=== PATIENT | male | born 1960 | race Caucasian/White ===

== ENCOUNTER → 2017-08-18 06:48 | Outpatient (CLI) | payer MEDICAID, SELFPAY ==
--- NOTE | 2017-08-18 10:36 | STRESSREP ---
Stress Test Report Exercise myocardial perfusion stress test. 56-year-old man with a history of chest pain. Stress protocol: Resting EKG demonstrates normal sinus rhythm with rate of 72 bpm normal intervals and noted resting blood pressure is 148/86 mmHg. The patient exercised according to regular Cash protocol for total duration of 4 minutes completing 1 minute into stage II of the Cash protocol the maximum heart rate attained was 1 34 bpm which was 80% of maximum predicted heart rate the maximum workload was 5.8 metabolic equivalents. Patient maintained sinus rhythm throughout the recording at rest there were no ST or T-wave changes noted suggest ischemia peak exercise no ST or T-wave changes were noted suggest ischemia the resting blood pressure 148/86 with a peak blood pressure 168/84. No clinical angina was noted rate pressure product was 21,600. Myocardial perfusion protocol. 11.9 mCi of technetium 99m sestamibi was injected at rest. The patient exercised according to regular Cash protocol for 4 minutes attaining 80% of maximum predicted heart rate and a workload of 5.8 metabolic equivalents. At peak exercise 34.1 mCi of technetium 99m sestamibi was injected stress images were obtained stress and rest images were reconstructed and compared in the short axis vertical long and horizontal long axis. Gated images were also obtained. Perfusion SPECT analysis: Review of the stress images demonstrate normal uptake of tracer noted in all areas of the myocardium. The resting images similarly demonstrate normal uptake of tracer noted in all areas of myocardium. No areas of reversibility are noted no ischemia is present and no infarct is present. Gated SPECT analysis: The gated ejection fraction is noted to be 61%. Conclusion: Normal exercise myocardial perfusion stress test at a moderate workload. No clinical angina noted. Preserved ejection fraction.
== END ==
LOC: CVS 06:48 → NM 06:50
PROVIDERS: Family Provider Internal Medicine; PCP Internal Medicine; Visit Provider Nurse Practitioner
DX: R07.9 Chest pain, unspecified (principal)
CPT/HCPCS: 78452; 93017; A9500; A4216

== ENCOUNTER 2018-12-07 10:54 | Day surgery (SDC) | payer MEDICAID, SELFPAY ==
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
[2018-12-07] VITALS (7 sets, daily range): BP systolic 140–150; BP diastolic 98–104; PULSE 77–103; RESP 16–18; TEMP 36.5–37.5; O2SAT 96–100; BMI 25.9
--- NOTE | 2018-12-07 | IMM_PTH ---
PATIENT: LUIS AN LOC: [facility] U#:[id number] AGE/SX: 57/M ROOM: RE12/07/[address]: Dr. Lionel Rodriguez MD : 1960 BED: DIS: 12/07/2018 SPEC #: [id number] RECD: 12/08/18 15:27 STATUS: ALDO RELeni #: [id number] CHRISTIANA: 12/07/18 00:[address]: Lionel Rodriguez DEPT: IMMUNOHISTOCHEMISTRY RECD BY: Mari Morin ENTERED: 12/08/18 15:28 SP TYPE: IMMUNO OTHR DR: Dr. Moe Schuler MD Tissues: Gastric mucous membrane Procedures: H Pylori (initial) PHYSICIAN & [place] [id number] SPECIMEN INFORMATION: Tissue Source: A. Antrum biopsy Clinical Info: Hemoccult positive stools Specimen Number: [id number] CPT code: 30733 METHODOLOGY: Deparaffinized sections of prefer/formalin-fixed tissue or PAP/DQ stained slides are incubated with monoclonal/polyclonal antibodies/oligonucleotide probes. Localization is made via biotin free immunoperoxidase method. Appropriate controls are performed and reacted as expected. Results on target cell population are indicated in the following table: RESULTS: ANTIBODY / CLONE RESULT H Pylori (polyclonal) negative These tests were developed and their performance characteristics determined by [facility]. They may not have been cleared or approved by the U.S. Food and Drug Administration. The FDA has determined that such clearance or approval is not necessary. INTERPRETATION: Antrum, biopsy: Negative for Helicobacter pylori organisms. SARI:bayron 12/09/18
[2018-12-07] MEDS: Lactated Ringers 1,000 ML 75 ML IV (11:26)
--- NOTE | 2018-12-07 12:00 | COLBX_PTH ---
PATIENT: LUIS AN LOC: EN U#:[id number] AGE/SX: 57/M ROOM: RE12/07/[address]: Dr. Lionel Rodriguez MD : 1960 BED: DIS: 12/07/2018 SPEC #: [id number] RECD: 12/07/18 14:53 STATUS: ALDO BARBARA #: [id number] CHRISTIANA: 12/07/18 12:[address]: Lionel Rodriguez DEPT: SURGICAL PATHOLOGY RECD BY: Chester Cheek ENTERED: 12/08/18 14:06 SP TYPE: COLON BX OTHR DR: Dr. Moe Schuler MD Tissues: A - Gastric mucous membrane B - Transverse colon C - Descending colon D - Rectum, NOS Procedures: Surgery Specimen Level IV HEADER OPERATION: Colonoscopy, EGD ([facility]) PRE-OP DIAGNOSIS: Hemoccult positive stools TISSUE SUBMITTED: A. Antrum biopsy, B. Proximal transverse colon polyps, C. Descending colon biopsy, D. Rectum polyp MICROSCOPIC DIAGNOSIS A. Antrum, biopsy: Mild gastritis. B. Proximal transverse colon polyp, biopsy: Tubular adenoma. C. Descending colon polyp, biopsy: Tubular adenoma. Fragments of fecal material. D. Rectum polyp, biopsy. Tubular adenoma. SJ:sp 12/09/18 COMMENT A. The results of immunohistochemistry for Helicobacter pylori will be reported separately ([id number]). MICROSCOPIC DESCRIPTION Slides are reviewed. The specimen shows fragments of gastric mucosa with chronic inflammatory cell infiltrates in the lamina propria consisting of lymphocytes and plasma cells, consistent with mild chronic gastritis. GROSS DESCRIPTION A. Received is one container labeled with the patient name and designated antral biopsy. The specimen consists of one irregular fragment of light rooney soft tissue that measures 0.3 x 0.3 x 0.1 cm. The specimen is totally submitted in one cassette. B. Received in fixative is one container labeled with the patient's name and designated proximal transverse colon polyp. The specimen consists of a piece of rooney-pink polyp measuring 0.7 x 0.7 x 0.3 cm. The specimen is totally submitted in one cassette. C. Received is one container labeled with the patient name and designated descending colon polyp. The specimen consists of multiple fragments of rooney soft tissue mixed with fecal material that in aggregate measure 2.5 x 0.5 x 0.1 cm. The specimen is totally submitted in one cassette. D. Received in fixative is one container labeled with the patient's name and designated rectum polyp. The specimen consists of a pink-red polyp measuring in 0.9 x 0.9 x 0.7 cm. The apparent base is inked. The polyp is bisected and submitted entirely in one cassette. /SJ:sp 12/08/18 TC: 1 CPT: 48814 x4
--- NOTE | 2018-12-07 13:05 | OP.ENDO_ITS ---
12/07/2018 Moe Schuler [address] [place] [address] Re : Upper GI endoscopy procedure for [place] [facility] Nurse Practitioner Dear Dr. Schuler This procedure was performed on Friday, December 07, 2018. My impressions and recommendations are as follows: Impressions : - Normal examined jejunum. - Normal examined duodenum. - Gastritis. Biopsied. - Normal esophagus. Recommendations : - Use Prilosec (omeprazole) 40 mg PO daily. - Continue present medications. My findings are described in the full procedure note, which is enclosed. If I can be of further assistance, please feel free to contact me at Doctor phone number(s): , Work: . Sincerely, Lionel Rodriguez MD 12/07/2018 1:05:00 PM This report has been signed electronically.
--- NOTE | 2018-12-07 13:10 | OP.ENDO_ITS ---
12/07/2018 Moe Schuler [address] [place] [address] Re : Colonoscopy procedure for [place] [employer] Dear Dr. Schuler This procedure was performed on Friday, December 07, 2018. My impressions and recommendations are as follows: Impressions : - Diverticulosis in the entire examined colon. - Five 5 to 13 mm polyps in the rectum, in the descending colon, in the transverse colon and at the hepatic flexure, removed with a cold snare. Resected and retrieved. Clip (MR conditional) was placed. - The examination was otherwise normal. - The distal rectum and anal verge are normal on retroflexion view. Recommendations : - Discharge patient to home. - Resume previous diet. 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 - Repeat colonoscopy in 3 years for surveillance of multiple polyps. - Continue present medications. My findings are described in the full procedure note, which is enclosed. If I can be of further assistance, please feel free to contact me at Doctor phone number(s): , Work: . Sincerely, Lionel Rodriguez MD 12/07/2018 1:10:07 PM This report has been signed electronically.
== END 2018-12-07 14:16 | disposition home or self-care (01) ==
LOC: EN 10:56 → AC 11:03
PROVIDERS: Family Provider Internal Medicine; PCP Internal Medicine; Referring Provider Internal Medicine; Visit Provider Surgery
PROC: 0DJD8ZZ Inspection of Lower Intestinal Tract, Via Natural or Artificial Opening Endoscopic (ICD-10-PCS; CPT 45378; principal; 2018-12-07 11:55)
DX: D12.3 Benign neoplasm of transverse colon (principal); D12.4 Benign neoplasm of descending colon; D12.8 Benign neoplasm of rectum; K57.30 Diverticulosis of large intestine without perforation or abscess without bleeding; K29.70 Gastritis, unspecified, without bleeding; I10 Essential (primary) hypertension; J43.9 Emphysema, unspecified; K43.2 Incisional hernia without obstruction or gangrene; R19.5 Other fecal abnormalities; R19.00 Intra-abdominal and pelvic swelling, mass and lump, unspecified site; R13.10 Dysphagia, unspecified; F12.90 Cannabis use, unspecified, uncomplicated; F17.210 Nicotine dependence, cigarettes, uncomplicated; F10.10 Alcohol abuse, uncomplicated; Y90.9 Presence of alcohol in blood, level not specified; Z79.899 Other long term (current) drug therapy
CPT/HCPCS: 43239; 45385; 88305; 88342; J7120; J2405

== ENCOUNTER 2022-03-15 12:17 | Inpatient (IN) | payer MEDICAID, SELFPAY ==
[2022-03-15] VITALS (25 sets, daily range): BP systolic 111–156; BP diastolic 61–90; PULSE 100–126; RESP 15–24; TEMP 36.6–38.1; O2SAT 95–100; BMI 28.0; BMI 26.7
--- NOTE | 2022-03-15 13:13 | EKG12_ITS ---
Test Reason : GI Blood Pressure : / mmHG Vent. Rate : 111 BPM Atrial Rate : 111 BPM P-R Int : 184 ms QRS Dur : 086 ms QT Int : 346 ms P-R-T Axes : 070 061 055 degrees QTc Int : 470 ms Sinus tachycardia with occasional Premature ventricular complexes Low voltage QRS Borderline ECG Confirmed by MYESHA RODRIGUEZ, PATRICE ([id number]), managing editor MIROSLAVA TIWARI ([id number]) on 03/19/2022 12:11:30 PM Referred By: FABRIZIO Confirmed By:PATRICE BRUNNER MD
--- NOTE | 2022-03-15 13:28 | CT_ITS ---
STUDY: CT ABDOMEN AND PELVIS WITH CONTRAST REASON FOR EXAM: Male, 61 years old. 3 week history of blood in the stools. Hematemesis for 2 days. History of prior partial colectomy. Lung cancer. RADIATION DOSAGE (If Supplied By Facility): CTDIvol = ( 13.64 ) mGy, DLP = ( 1199.50 ) mGycm TECHNIQUE: Transaxial images were obtained from the dome of the diaphragm to the symphysis pubis without oral contrast. IV 100mL Isovue-370 was administered. Sagittal and coronal images were reconstructed. Individualized dose optimization techniques were used for this CT. COMPARISON: None. FINDINGS: Tiny bilateral pleural effusions with bibasilar atelectasis. Coronary artery calcification. There is a diffuse contour abnormality of the liver consistent with cirrhotic changes. Hepatomegaly. Small amount of perihepatic fluid collection. Scattered tiny cysts in the liver. Small gallstones. Small remnant spleen. Possible varices in the splenic hilum. Small cystic spaces are seen in the head of the pancreas. Questionable 2.5 cm hypodense mass in the head of the pancreas. Normal bilateral adrenal glands. Normal right kidney. Normal left kidney. Thickening of the gastric wall although the stomach is not adequately distended at this time. Normal small intestine. There are multiple colonic diverticula consistent with diverticulosis. Normal abdominal aorta. Normal inferior vena cava. Normal retroperitoneum. Haziness in the mesenteric fat at the level of the root of the mesentery. Minimal amount of the lateral free fluid in the paracolic gutters. Mildly thickened bladder wall. There are prostatic calcifications. There is evidence of a midline ventral hernia containing nondilated small bowel loops. Left Air-containing fat. There are diffuse degenerative changes of the visualized lumbar spine. CT/Abdomen/Pelvis W IV Cont ONLY IMPRESSION: Minimal bilateral pleural effusions with bibasilar atelectasis. Hepatomegaly and findings are suggestive of cirrhosis of the liver. Mild degree of ascites. Small splenic remnants. Findings suggestive of varices. Midline anterior abdominal wall hernia containing nondilated small bowel loops. The neck of the hernia measures 3.9 cm. Small gallstones. Questionable 2.5 cm hypodense mass in the head of the pancreas. Electronically Signed: Girish Lynch MD at 15:03 EST ,
--- NOTE | 2022-03-15 13:29 | ED.VIS.GI ---
HPI HPI - GI History of Present Illness Chief Complaint: GI Bleed Narrative Narrative: 61-year-old male presenting with hematemesis and bloody stools. He states he drinks about a pint of schnapps daily. He used to drink more than this. He states he was not feeling well and was vomiting so he did not drink for the last 4 days. He admits to drinking today however. Patient states he has not vomited blood or had bloody stools for the last couple of days. He does state that he has black stool currently. He states he last had endoscopy performed by Dr. Rodriguez about 2 months ago and this was normal. He has no history of GI bleed. He is not on any blood thinners. He does note that he has darker skin than usual and his eyes are yellow. He states currently he is not having any abdominal pain. He does admit to some irritation of the scrotum from trying to wipe himself and stating he could not reach his rectum very well causing him to excoriate his scrotum. Other than this he denies any trauma. PFSH PFSH Medical History Alcoholic cirrhosis COPD (chronic obstructive pulmonary disease) ETOH abuse Hernia HTN (hypertension) Tobacco use Home Medications ferrous sulfate 325 mg (65 mg iron) tablet (FeroSul) 325 mg PO DAILY SUPPLEMENT 03/15/22 [History Last Taken 03/15/22] furosemide 40 mg tablet 40 mg PO DAILY FLUID 03/15/22 [History Last Taken Unknown] spironolactone 50 mg tablet 50 mg PO BID HTN 03/15/22 [History Last Taken 03/15/22] Allergy/AdvReac Type Severity Reaction Status Date / Time bee venom protein (honey bee) Allergy Hives Verified 03/15/22 12:19 codeine Allergy Hives Verified 03/15/22 12:19 Family History (Updated 03/15/22 @ 15:[address] Nishi Nassar MD) Father Diabetes Hypertension Mother Hypertension Surgical History (Updated 03/15/22 @ 15:[address] Nishi Nassar MD) H/O elbow replacement H/O exploratory laparotomy H/O hernia repair Social History (Updated 03/15/22 @ 15:[address] Nishi Nassar MD) household members: none Smoking Status: Current every day smoker tobacco type: cigarettes Smoking packs per day: 2 Smoking cigarettes per day: 40.0 Years smoked: 49 Smoking pack-years: 98.00 alcohol intake: current alcohol intake frequency: 3 or more drinks per day Alcohol type: beer and hard liquor details: Prior Hx ~ 12 beers daily prior, now reporting 1 pint schnapps daily. substance use type: does not use ROS ROS ED Constitutional Constitutional ED: Denies chills or fever(s) ENT ENT ED: Denies rhinorrhea or sore throat Cardiovascular Cardiovascular: Denies chest pain or palpitations Respiratory/Chest Respiratory/Chest: Denies cough or dyspnea Gastrointestinal Gastrointestinal: Reports melena, nausea, vomiting and other Details: Hematemesis, medic easier Genitourinary Genitourinary ED: Denies dysuria or hematuria Musculoskeletal Musculoskeletal: Denies arthralgias Integumentary Reports other Details: Excoriations to scrotum Neurologic Neurologic: Denies headache(s) or paresthesias Psychiatric Psychiatric: Denies anxiety or depression Endocrine Endocrinology: Denies polydipsia or polyphagia EXAM Physical Exam Narrative Exam Narrative: 5 Const Vital Signs: 03/15/22 12:20 03/15/22 13:44 03/15/22 14:16 Temperature 99.1 F Temperature Source Oral Pulse Rate 126 H 114 H 112 H Respiratory Rate 21 H 18 18 Blood Pressure 135/77 H 139/75 H 136/70 H Blood Pressure Mean 96 96 92 Blood Pressure Source Blood Pressure Position Blood Pressure Location Pulse Ox 99 100 100 Oxygen Delivery Method Room Air Room Air Room Air 03/15/22 15:11 03/15/22 15:43 03/15/22 15:46 Temperature 98.3 F 98.3 F Temperature Source Oral Oral Pulse Rate 111 H 109 H 105 H Respiratory Rate 15 19 H 18 Blood Pressure 126/69 H 124/62 H 123/67 H Blood Pressure Mean 88 82 85 Blood Pressure Source Monitor Monitor Blood Pressure Position Supine Supine Blood Pressure Location Right Arm Right Arm Pulse Ox 98 98 96 Oxygen Delivery Method Room Air Room Air Room Air 03/15/22 16:01 03/15/22 16:13 03/15/22 17:01 Temperature 99.6 F H 100.4 F H Temperature Source Oral Oral Pulse Rate 108 H 105 H 104 H Respiratory Rate 17 18 18 Blood Pressure 125/61 H 125/61 H 146/83 H Blood Pressure Mean 82 82 104 Blood Pressure Source Monitor Monitor Blood Pressure Position Supine Supine Blood Pressure Location Right Arm Right Arm Pulse Ox 97 98 98 Oxygen Delivery Method Room Air Room Air Room Air 03/15/22 17:12 Temperature Temperature Source Pulse Rate 110 H Respiratory Rate 19 H Blood Pressure 146/83 H Blood Pressure Mean 104 Blood Pressure Source Blood Pressure Position Blood Pressure Location Pulse Ox 98 Oxygen Delivery Method Room Air General Appearance ED: NAD; Negative for pallor HEENT Reports dry mucous membranes Mouth ED: Yes dry mucous membranes Mouth: dry mucous membranes Eyes General Eye ED: Yes scleral icterus Neck no lymphadenopathy Resp normal respiratory effort Cardio regular rhythm Rate: tachycardic GI non-tender Palpation: soft Neuro CN's II-XII intact bilaterally Sensorium / Orientation: alert Motor Exam: strength 5/5 throughout Psych mental status grossly normal and thought process normal Skin Skin Narrative: Scrotum mildly erythematous. No crepitance. No evidence of torsion. General Skin Exam: Negative for jaundice or pallor MDM MDM MDM Narrative Medical decision making narrative: 11-year-old male presenting with jaundice, scleral icterus, reported hematemesis and hematochezia which stopped about 2 days ago. He states he chronically drinks about a pint of schnapps a day. He states he had a recent endoscopy performed by Dr. Rodriguez within the last couple of months which he said was normal. Patient is tachycardic on arrival with a heart rate of 126 although he is normotensive with a blood pressure of 135/77. He states at this time he does not have any abdominal pain but had been having a little bit while he was vomiting. He reports that over the last few days he had not been drinking alcohol because he did not feel well and has not had any withdrawal symptoms. Blood work was obtained and he has a leukocytosis of 15.6. His hemoglobin today is 4.8. His only comparison lab work is from April 25, 2021 when it was 11.0. His platelets are 155 today. Creatinine appears normal today. Electrolytes are unremarkable. His total bilirubin is 13.90. Direct bilirubin is 8.15. Lipase slightly elevated at 43. AST mildly elevated at 55. ALT and alkaline phosphatase are normal. INR is 3.2 and the patient reports he is not on anticoagulation. EKG was obtained because of the patient's tachycardia and on my interpretation is a sinus tachycardia with a ventricular rate of 111 bpm with occasional PVCs. High-sensitivity troponin is 14. Typed, screened, crossmatched for 2 units. I initially spoke with Dr. Bach who is on-call for general surgery and she did not feel comfortable keeping the patient at [facility]. I spoke with Dr. Burnette who recommended placing the patient in the ICU due to the severe anemia. He recommended starting an acetylcholine and treating like it was a Tylenol overdose, he recommended 400 mg of pentoxifylline 3 times daily, Protonix drip, octreotide drip with a rate of 12 mg/h, 1 g of Rocephin every 24, one-time dose of vitamin K 5 mg IV. This was given here in the ED. I spoke with the hospitalist on-call and the patient was admitted in stable condition. Impression: 1. Leukocytosis 2. Acute blood loss anemia 3. Hematemesis 4. Hematochezia 5. EtOH abuse 6. Cirrhosis 7. 2.5 cm mass in the pancreatic head 8. Tachycardia Lab Data Attestation: I reviewed the patient's lab results. Labs: Laboratory Results - last 24 hr 03/15/22 03/15/22 03/15/22 12:30 12:30 12:30 WBC 15.6 H RBC 1.57 L Hgb 4.8 L* Hct 17.5 L MCV 111.5 H MCH 30.6 MCHC 27.4 L RDW Std Deviation 87.5 H RDW Coeff of [place] 22.6 H Plt Count 155 MPV 11.4 Immature Gran % (Auto) 2.500 H Neut % (Auto) 82.2 H Lymph % (Auto) 3.2 L [place] % (Auto) 12.0 H Eos % (Auto) 0.0 Baso % (Auto) 0.1 Absolute Neuts (auto) 12.8 H Absolute Lymphs (auto) 0.50 L Nucleated RBC % 2.0 [address] Path Review May foll Dohle Bodies RARE Polychromasia 1+ Hypochromasia 3+ Anisocytosis 3+ PT INR Sodium 133 L Potassium 3.5 Chloride 100 Carbon Dioxide 18.0 L Anion Gap 15 BUN 22 H Creatinine 1.13 Estim Creat Clear Calc 68.10 Est GFR (MDRD) Af Amer 85 Est GFR (MDRD) Non-Af 71 BUN/Creatinine Ratio 19.5 Glucose 128 H Calcium 8.2 L Total Bilirubin 13.90 H Direct Bilirubin AST 55 H ALT 23 Alkaline Phosphatase 100 Troponin I High Sens 14 Total Protein 6.2 L Albumin 1.9 L Globulin 4.3 H Albumin/Globulin Ratio 0.4 L Lipase 403 H Ethyl Alcohol Blood Type O POSITIVE Antibody Screen NEGATIVE Crossmatch 03/15/22 03/15/22 03/15/22 12:30 12:30 12:30 WBC RBC Hgb Hct MCV MCH MCHC RDW Std Deviation RDW Coeff of [place] Plt Count MPV Immature Gran % (Auto) Neut % (Auto) Lymph % (Auto) [place] % (Auto) Eos % (Auto) Baso % (Auto) Absolute Neuts (auto) Absolute Lymphs (auto) Nucleated RBC % Diff Path Review Dohle Bodies Polychromasia Hypochromasia Anisocytosis PT 32.1 H INR 3.2 Sodium Potassium Chloride Carbon Dioxide Anion Gap BUN Creatinine Estim Creat Clear Calc Est GFR (MDRD) Af Amer Est GFR (MDRD) Non-Af BUN/Creatinine Ratio Glucose Calcium Total Bilirubin Direct Bilirubin 8.15 H AST ALT Alkaline Phosphatase Troponin I High Sens Total Protein Albumin Globulin Albumin/Globulin Ratio Lipase Ethyl Alcohol Blood Type Antibody Screen Crossmatch See Detail 03/15/22 13:54 WBC RBC Hgb Hct MCV MCH MCHC RDW Std Deviation RDW Coeff of [place] Plt Count MPV Immature Gran % (Auto) Neut % (Auto) Lymph % (Auto) [place] % (Auto) Eos % (Auto) Baso % (Auto) Absolute Neuts (auto) Absolute Lymphs (auto) Nucleated RBC % Diff Path Review Dohle Bodies Polychromasia Hypochromasia Anisocytosis PT INR Sodium Potassium Chloride Carbon Dioxide Anion Gap BUN Creatinine Estim Creat Clear Calc Est GFR (MDRD) Af Amer Est GFR (MDRD) Non-Af BUN/Creatinine Ratio Glucose Calcium Total Bilirubin Direct Bilirubin AST ALT Alkaline Phosphatase Troponin I High Sens Total Protein Albumin Globulin Albumin/Globulin Ratio Lipase Ethyl Alcohol 34.0 Blood Type Antibody Screen Crossmatch Radiography Diagnostic Testing: Clinical Impression(s) from Imaging Studies Abdomen/Pelvis CT 03/15/22 13:28 IMPRESSION: Minimal bilateral pleural effusions with bibasilar atelectasis. Hepatomegaly and findings are suggestive of cirrhosis of the liver. Mild degree of ascites. Small splenic remnants. Findings suggestive of varices. Midline anterior abdominal wall hernia containing nondilated small bowel loops. The neck of the hernia measures 3.9 cm. Small gallstones. Questionable 2.5 cm hypodense mass in the head of the pancreas. Electronically Signed: Girish Lynch MD at 15:03 EST , Critical Care Time Critical Care Time: Yes Critical care time (excluding procedures): 30-74 minutes (31), Discussing w/Patient &/or Family/Cat Hooker, Discussing w/Consultants and Arranging Admission or Transfer Discharge Plan Triage Chief Complaint: GI Bleed ED Provider: Bobo Grigsby Dx/Rx/DC Orders Prescriptions: No Action furosemide 40 mg tablet 40 mg PO DAILY Label Comments: Take 1 tablet by mouth once daily. ferrous sulfate [FeroSul] 325 mg (65 mg iron) tablet 325 mg PO DAILY Label Comments: Take 1 tablet by mouth daily with breakfast. spironolactone 50 mg tablet 50 mg PO BID Label Comments: Take 1 tablet by mouth twice daily. Primary Care Provider: Moe Schuler Referrals: Moe Schuler MD [Primary Care Provider] -
[2022-03-15 13:35] LABS: Absolute Neutrophil Count 12.8 X10^3/uL (2.0-7.7); Basophil# 0.02 X10^3/uL; Basophil% 0.1 % (0-1); Hematocrit 17.5 % (40-54); Hemoglobin 4.8 g/dL (13.0-16.5); Lymphocyte % 3.2 % (19-41); Mean Corp Hgb Conc 27.4 g/dL (32-36); Mean Corpuscular Hgb 30.6 pg (27.0-32.0); Mean Corpuscular Volume 111.5 fL (80-94); Mean Platelet Vol. 11.4 fl (6.2-12.0); Monocyte# 1.87 X10^3/uL; Neutrophil # 12.78 X10^3/uL (2.7-7.7); Neutrophil % 82.2 % (47-70); POSITIVE COUNT YES; POSITIVE DIFFERENTIAL YES; POSITIVE MORPHOLOGY YES; Platelet Count 155 K/mm3 (150-450); RBC Distribution Width CV 22.6 % (11.6-14.6); RBC Distribution Width SD 87.5 fl (35.1-43.9); Red Blood Count 1.57 M/mm3 (4.6-6.2); White Blood Count 15.6 K/mm3 (4.4-11.0)
[2022-03-15 13:39] LABS: Differential Indicated SCAN CRITERIA MET
[2022-03-15] MEDS: 0.9% Normal Saline 1,000 ML 999 ML IV (13:41)
[2022-03-15 13:47] LABS: International Normalized Ratio 3.2; Prothrombin Time (Protime)PT. 32.1 SECONDS (11.7-14.9)
[2022-03-15 13:50] LABS: ALB/GLOB Ratio 0.4 RATIO (0.9-2.4); AST(SGOT) 55 U/L (15-37); Alanine Aminotransfer ALT/SGPT 23 U/L (16-61); Albumin, Serum 1.9 g/dL (3.2-5.0); Alkaline Phosphatase 100 U/L (45-117); Anion Gap 15 (5-15); BUN 22 mg/dL (7-18); BUN/Creat Ratio 19.5 RATIO (10-20); Calcium,Total 8.2 mg/dL (8.5-10.1); Chloride 100 mmol/L (98-107); Creatinine, Serum 1.13 mg/dL (0.70-1.30); EST Glomerular Filtration Rate 71 mL/min (>60); Est Glom Filt Rate - Afr Amer 85 mL/min (>60); Globulin 4.3 g/dL (2.2-4.2); Glucose 128 mg/dL (74-106); Lipase 403 U/L (73-393); Potassium 3.5 mmol/L (3.5-5.1); Protein, Total 6.2 g/dL (6.4-8.2); Sodium Level 133 mmol/L (136-145); Troponin-I HS 14 pg/mL (3.0-78.0)
[2022-03-15 13:57] LABS: Anisocytosis 3+; Hypochromasia 3+
[2022-03-15 13:58] LABS: Dohle Bodies RARE; Polychromasia 1+
[2022-03-15 14:17] LABS: Bilirubin, Direct 8.15 mg/dL (0.00-0.30)
[2022-03-15] MEDS: fentaNYL 100 MCG/2 ML Ampul 25 MCG IV (14:48)
[2022-03-15] MEDS: Ondansetron 4 MG/2 ML Vial IV (14:48)
--- NOTE | 2022-03-15 16:14 | ED.RN ---
THIS RN ANSWERED PHONE CALL AT [phone]. TETE SWARTZ CALLED SEEKING PT UPDATE. PT UPDATE GIVEN AND PT NOTIFIED OF MS. SWARTZ'S CALL.
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
--- NOTE | 2022-03-15 17:12 | PCM.CONS.GEN ---
Assessment & Plan Assessment/Plan (1) Alcoholic hepatitis: PLAN: MADREscore is 42 and normally he would give steroids. However in setting of an acute upper GI bleed steroid would be very deleterious to him at this time. Recommend Pentoxil filing and N-acetylcysteine for alcohol and hepatitis hopefully to replete his glutathione stores. (2) GI bleed: PLAN: The differential diagnosis for an upper GI bleed in a cirrhotic that has varices on CT scan would be esophageal variceal bleed, duodenal variceal bleed, portal gastropathy, Marina-Shepherd tear, peptic ulcer disease, angiodysplasia, gastric antral vascular ectasia. He should be on ceftriaxone 1 g IV every 24 hours, 5 mg of IV vitamin K, 5 mg of oral vitamin K, transfusion of 4 units of packed red blood cells with Lasix 20 mg between every 2 doses, octreotide drip and PPI drip. He will undergo an upper endoscopy for evaluation of his upper GI tract to be explained alternatives, risk, benefits including not withstanding bleeding, infection, sepsis, perforation, need for urgent . He will have an ASA of 3. (3) Cirrhosis: PLAN: Decompensated cirrhosis with mild ascites seen on CT scan, upper GI bleed, jaundice. Check an ammonia level and start Xifaxan 550 mg twice a day. Also, give him neomycin 1 g twice daily and azithromycin 500 mg IV x1. This is to help sterilize the GI tract and help to prevent reabsorption of ammonia as it equilibrates throughout the night. HPI Consult Data Date of Consult: 03/15/22 HPI Narrative HPI Narrative: LUIS AN, is a 61 M who presents with hematemesis and bloody stools.? He states he drinks about a pint of schnapps daily.? He used to drink more than this.? He states he was not feeling well and was vomiting so he did not drink for the last 4 days.? He admits to drinking today however.? Patient states he has not vomited blood or had bloody stools for the last couple of days.? He does state that he has black stool currently.? He states he last had endoscopy performed by Dr. Rodriguez about 2 months ago and this was normal.? He has no history of GI bleed.? He is not on any blood thinners.? He does note that he has darker skin than usual and his eyes are yellow.? He states currently he is not having any abdominal pain.? He does admit to some irritation of the scrotum from trying to wipe himself and stating he could not reach his rectum very well causing him to excoriate his scrotum.? Other than this he denies any trauma. ED included T99.1, heart rate initially 126 with most recent repeat 111, BP 135/77 with most recent repeat 126/69, respiratory rate 21, 99% on room air, CBC with WC 15.6, hemoglobin 4.8, MCV 111.5, platelet 155 with left shift and lymphopenia, coags with INR 3.2, PT 32.1, CMP with sodium 133, carbon dioxide 18, BUN/creat 22/1.13, glucose 128, calcium 8.2, T bili 13.9, direct bili 8.15, AST/ALT 55/23, alk phos 100, troponin 14, lipase 403, ethyl alcohol 34, 2 u PRBC type and cross ordered per ED physician, CT abdomen and pelvis with minimal bilateral pleural effusions with bibasilar atelectasis, hepatomegaly and findings suggestive of cirrhosis the liver, mild degree of ascites, small splenic remnants, findings suggestive of varices, midline anterior abdominal wall hernia containing nondilated small bowel loops, neck of the hernia measures 3.9 cm, small gallstones, questionable 2.5 cm hypodense mass in the head of the pancreas.? In the ED patient administered normal saline bolus, Protonix 40 mg IV, Zofran 4 mg IV as well as fentanyl 25 mcg IV x1.? ED physician discussed case with gastroenterology who recommended transfer and in the interim administration of acetylcysteine, Rocephin as well as octreotide drip and Protonix drip in addition to vitamin K 5 mg IV x1. PFSH Medical History Alcoholic cirrhosis COPD (chronic obstructive pulmonary disease) ETOH abuse Hernia HTN (hypertension) Tobacco use Home Medications ferrous sulfate 325 mg (65 mg iron) tablet (FeroSul) 325 mg PO DAILY SUPPLEMENT 03/15/22 [History Last Taken 03/15/22] furosemide 40 mg tablet 40 mg PO DAILY FLUID 03/15/22 [History Last Taken Unknown] spironolactone 50 mg tablet 50 mg PO BID HTN 03/15/22 [History Last Taken 03/15/22] Allergy/AdvReac Type Severity Reaction Status Date / Time bee venom protein (honey bee) Allergy Hives Verified 03/15/22 12:19 codeine Allergy Hives Verified 03/15/22 12:19 Family History (Updated 03/15/22 @ 15:[address] Nishi Nassar MD) Father Diabetes Hypertension Mother Hypertension Surgical History (Updated 03/15/22 @ 15:[address] Nishi Nassar MD) H/O elbow replacement H/O exploratory laparotomy H/O hernia repair Social History (Updated 03/15/22 @ 15:[address] Nishi Nassar MD) household members: none Smoking Status: Current every day smoker tobacco type: cigarettes Smoking packs per day: 2 Smoking cigarettes per day: 40.0 Years smoked: 49 Smoking pack-years: 98.00 alcohol intake: current alcohol intake frequency: 3 or more drinks per day Alcohol type: beer and hard liquor details: Prior Hx ~ 12 beers daily prior, now reporting 1 pint schnapps daily. substance use type: does not use ROS Review of Systems ROS Unobtainable: other Constitutional Constitutional: Denies fatigue, fever(s), poor appetite, weight gain or weight loss ENT HEENT: Denies mouth lesions Cardiovascular Cardiovascular: Denies abdominal bloating, abdominal edema or abdominal pain Respiratory/Chest Respiratory/Chest: Denies change in mental status, change in phlegm color, chest congestion or chest tightness Gastrointestinal Gastrointestinal: Denies belching, bloating, change in bowel habits, change in stool character, chewing difficulty, coffee ground emesis, constipation, cramping, diarrhea, dyspepsia, dysphagia, early satiety, excessive flatus, fecal incontinence, heartburn, hematemesis, hematochezia, hemorrhoids, loose stools, melena, nausea, odynophagia, rectal bleeding, tenesmus, vomiting or weight changes Genitourinary Genitourinary: Denies abdominal discomfort, burning urination or itching Musculoskeletal Musculoskeletal: Reports as per HPI; Denies muscle weakness or myalgias Integumentary Integumentary: Denies jaundice Neurologic Neurologic: Denies lack of coordination or weakness Psychiatric Psychiatric: Denies confusion, depression, memory loss, mood swings, paranoia or suicidal ideation Endocrine Endocrinology: Denies systems reviewed and no addt'l complaints, except as documented Hematologic/Lymphatic Hematologic/Lymphatic: Denies anemia, easy bleeding, easy bruising or lymphadenopathy Allergic/Immunologic Allergic/Immunologic: Denies systems reviewed and no addt'l complaints, except as documented Physical Exam Const alert General Appearance: cooperative Orientation / Consciousness: oriented to person HEENT hearing grossly normal bilaterally Head and Scalp: normal to inspection Face and Sinus: face symmetric Nose: external nose normal Mouth: oral and palatal mucosa normal Eyes conjunctivae normal General Eye: normal appearance of both eyes Neck full ROM General: normal visual inspection Lymph Lymphatic: no lymphadenopathy noted Chest inspection of chest normal and palpation of chest normal Chest: symmetrical chest wall rise Resp normal respiratory effort Effort and Inspection: able to speak in complete sentences Cardio regular rate GI non-distended Percussion: normal to percussion Rectal Exam: deferred Neuro Speech: speech normal Gait (Neuro): normal gait Lab / Micro Data Result Diagrams: 03/15/22 12:30 03/15/22 12:30 Labs: Laboratory Results - last 24 hr 03/15/22 12:30: WBC 15.6 H, RBC 1.57 L, Hgb 4.8 L*, Hct 17.5 L, MCV 111.5 H, MCH 30.6, MCHC 27.4 L, RDW Std Deviation 87.5 H, RDW Coeff of [place] 22.6 H, Plt Count 155, MPV 11.4, Immature Gran % (Auto) 2.500 H, Neut % (Auto) 82.2 H, Lymph % (Auto) 3.2 L, [place] % (Auto) 12.0 H, Eos % (Auto) 0.0, Baso % (Auto) 0.1, Absolute Neuts (auto) 12.8 H, Absolute Lymphs (auto) 0.50 L, Nucleated RBC % 2.0, Diff Path Review May foll, Dohle Bodies RARE, Polychromasia 1+, Hypochromasia 3+, Anisocytosis 3+ 03/15/22 12:30: Blood Type O POSITIVE, Antibody Screen NEGATIVE 03/15/22 12:30: Sodium 133 L, Potassium 3.5, Chloride 100, Carbon Dioxide 18.0 L, Anion Gap 15, BUN 22 H, Creatinine 1.13, Estim Creat Clear Calc 68.10, Est GFR (MDRD) Af Amer 85, Est GFR (MDRD) Non-Af 71, BUN/Creatinine Ratio 19.5, Glucose 128 H, Calcium 8.2 L, Total Bilirubin 13.90 H, AST 55 H, ALT 23, Alkaline Phosphatase 100, Troponin I High Sens 14, Total Protein 6.2 L, Albumin 1.9 L, Globulin 4.3 H, Albumin/Globulin Ratio 0.4 L, Lipase 403 H 03/15/22 12:30: PT 32.1 H, INR 3.2 03/15/22 12:30: Crossmatch See Detail 03/15/22 12:30: Direct Bilirubin 8.15 H 03/15/22 13:54: Ethyl Alcohol 34.0 Radiology Impression Abdomen/Pelvis CT 03/15/22 13:28 IMPRESSION: Minimal bilateral pleural effusions with bibasilar atelectasis. Hepatomegaly and findings are suggestive of cirrhosis of the liver. Mild degree of ascites. Small splenic remnants. Findings suggestive of varices. Midline anterior abdominal wall hernia containing nondilated small bowel loops. The neck of the hernia measures 3.9 cm. Small gallstones. Questionable 2.5 cm hypodense mass in the head of the pancreas. Electronically Signed: Girish Lynch MD at 15:03 EST , Charges/Coding Visit Charges Inpatient E&M: 51982 Init Hosp L3
[2022-03-15] MEDS: Pentoxifylline 400 MG Tablet PO (17:15)
[2022-03-15] MEDS: Ceftriaxone 1 GM/50 ML BAG IV (17:23)
[2022-03-15 17:57] LABS: Magnesium 1.5 mg/dL (1.6-2.6); Phosphorus 2.4 mg/dL (2.5-4.9)
--- NOTE | 2022-03-15 18:04 | ED.RN ---
REPORT GIVEN TO ICU NURSE AT 1804.
--- NOTE | 2022-03-15 18:58 | RAD_ITS ---
STUDY: X-RAY CHEST REASON FOR EXAM: Male, 61 years old. Fever. Blood in stool for 3 weeks. Vomiting blood 2 days ago. TECHNIQUE: Single AP portable view of the chest. COMPARISON: CT of the chest, July 09, 2016. FINDINGS: Lungs well expanded. There is no acute infiltrate or mass. There is no demonstrated pleural abnormality. Normal size heart. Normal mediastinum and david. Normal visualized pulmonary arteries. Normal visualized aortic arch and descending thoracic aorta. There are diffuse degenerative changes of the visualized thoracic spine. Normal visualized ribs, clavicles, and shoulders. There is no demonstrated abnormality of the visualized soft tissue structures of the upper abdomen. RAD/Chest 1 View (Portable) IMPRESSION: No acute cardiopulmonary disease. Electronically Signed: Sergey Dowell DO at 19:23 EST ,
[2022-03-15] MEDS: 0.9% Normal Saline 1,000 ML 100 ML IV (20:45)
[2022-03-15] MEDS: Phytonadione (Vit K1) 5 MG TABLET PO (21:29)
[2022-03-15 22:06] LABS: Hematocrit 19.5 % (40-54); POSITIVE COUNT YES
[2022-03-15 22:21] LABS: Hemoglobin 5.9 g/dL (13.0-16.5)
[2022-03-16] VITALS (48 sets, daily range): BP systolic 90–153; BP diastolic 57–94; PULSE 78–105; RESP 14–25; TEMP 36.3–38; O2SAT 94–100
[2022-03-16 00:11] LABS: International Normalized Ratio 3.8; Prothrombin Time (Protime)PT. 37.4 SECONDS (11.7-14.9)
[2022-03-16 03:17] LABS: Hematocrit 19.4 % (40-54); Mean Corp Hgb Conc 30.9 g/dL (32-36); Mean Corpuscular Hgb 30.9 pg (27.0-32.0); Mean Platelet Vol. 11.1 fl (6.2-12.0); POSITIVE COUNT YES; POSITIVE DIFFERENTIAL YES; POSITIVE MORPHOLOGY YES; Platelet Count 104 K/mm3 (150-450); RBC Distribution Width CV 22.1 % (11.6-14.6); RBC Distribution Width SD 73.9 fl (35.1-43.9); Red Blood Count 1.94 M/mm3 (4.6-6.2)
[2022-03-16 03:22] LABS: Differential Indicated MANUAL DIFF
[2022-03-16 03:31] LABS: International Normalized Ratio 3.6; Prothrombin Time (Protime)PT. 35.8 SECONDS (11.7-14.9)
[2022-03-16 03:53] LABS: ALB/GLOB Ratio 0.4 RATIO (0.9-2.4); AST(SGOT) 59 U/L (15-37); Alanine Aminotransfer ALT/SGPT 23 U/L (16-61); Albumin, Serum 1.3 g/dL (3.2-5.0); Alkaline Phosphatase 68 U/L (45-117); Anion Gap 8 (5-15); BUN 17 mg/dL (7-18); Calcium,Total 6.7 mg/dL (8.5-10.1); Chloride 102 mmol/L (98-107); Creatinine, Serum 0.81 mg/dL (0.70-1.30); EST Glomerular Filtration Rate 104 mL/min (>60); Est Glom Filt Rate - Afr Amer 126 mL/min (>60); Globulin 3.4 g/dL (2.2-4.2); Glucose 140 mg/dL (74-106); Magnesium 1.7 mg/dL (1.6-2.6); Phosphorus 4.6 mg/dL (2.5-4.9); Potassium 2.6 mmol/L (3.5-5.1); Protein, Total 4.7 g/dL (6.4-8.2); Sodium Level 135 mmol/L (136-145)
[2022-03-16 04:00] LABS: Corrected WBC 8.5 K/mm3 (4.4-11.0); Lymphocyte 1 % (19-41); Metamyelocyte 2 % (0-1); Monocyte 15 % (0-10); Myelocyte 2 % (0-0); Neutrophil-Band 3 % (0-5); Neutrophil-Segmented 77 % (47-70); Nucleated Red Bld Cells,Manual 6 % (0-5); Total Cells Counted 100 (MANUAL DIFF)
[2022-03-16 04:01] LABS: Neutrophil # 7.53 X10^3/uL (2.7-7.7)
[2022-03-16 04:02] LABS: Absolute Lymphocyte Count 0.09 X10^3/uL (0.83-4.51); Absolute Neutrophil Count 7.5 X10^3/uL (2.0-7.7); Lymphocyte # 0.09 X10^3/ul (0.83-4.51); Platelet Estimate SLT DEC (ADEQ)
[2022-03-16 04:03] LABS: Anisocytosis 2+; Macrocytosis 1+; Microcytosis 1+; Polychromasia 1+
--- NOTE | 2022-03-16 04:03 | NURSING ---
notified of pt K of 2.6. Orders given. Will continue to monitor
[2022-03-16] MEDS: Potassium Chloride 10mEq/100mL 10 MEQ/100 ML IV.SOLN. 100 MEQ IV BOLUS ×4 (04:41→07:30)
[2022-03-16] MEDS: KCL 40mEq in 0.9% NS 40 MEQ/1,000 ML IV.SOLN 100 MEQ IV ×2 (04:41→15:03)
--- NOTE | 2022-03-16 05:56 | EX.PCM.CONCC ---
Assessment & Plan Assessment/Plan (1) GI bleed: PLAN: Plan RECOMMENDATIONS: 1. Transfusion of blood products to maintain a hemoglobin at or above 7 g/dL. 2. Continue PPI therapy, octreotide, acetylcysteine and Pentoxil filing per GI recommendations. 3. Tentative plans for upper and lower endoscopy later this morning. 4. Continue nicotine replacement therapy. 5. Continue thiamine and folic acid. 6. Monitor for signs of alcohol withdrawal. IMPRESSIONS: 1. Acute blood loss anemia Presumed secondary to gastrointestinal hemorrhage in the setting of decompensated cirrhosis related to alcohol dependency. Gastroenterology is currently following. The patient is receiving transfusion of packed red blood cells. Continue current medical management with pantoprazole, octreotide, acetylcysteine, Pentoxil filing and antimicrobials as ordered. Check H&H posttransfusion. Tentative plans for upper and lower endoscopy later this morning. 2. Decompensated cirrhosis related to alcoholism Continue primary medical management per gastroenterology recommendations. 3. Chronic alcohol and tobacco dependency Agree with initiation of folic acid and thiamine. The patient will need to be monitored closely for any signs of alcohol withdrawal. His last alcohol consumption was reported on March 15. I personally spent 3 minutes discussing the deleterious effects of continued tobacco use with the patient, including modalities which could be utilized to achieve a smoke-free lifestyle. Nicotine replacement therapy will be continued while the patient is admitted to the hospital. This note was generated with [employer] dictation software. It may contain incorrect words, spelling, and punctuation that were not noted in checking the note before signing. HPI Consult Data Date of Consult: 03/17/22 HPI Narrative Reason for Consultation: Anemia, GI bleed HPI Narrative: The patient is a 61-year-old male, with a history as outlined below, who presented to the emergency department via EMS on March 15 with hematemesis and hematochezia over the last several days. The patient has a known history of alcohol dependency. The patient reported that he typically drinks 1 pint of schnapps daily, with his last drink having occurred on March 15. He also smokes cigarettes daily. On presentation to the emergency department, the patient was noted to be afebrile but was tachycardic and tachypneic. The patient was maintaining appropriate oxygen saturations on room air. Initial laboratory evaluation revealed an elevated white blood cell count of 15,000. The patient was anemic with a hemoglobin of 4.8 g/dL. Coagulation profile revealed an INR of 3.2. Chemistry profile was notable for a sodium of 133, bicarbonate of 18 and BUN of 22. Phosphorus was low at 2.4 with a magnesium of 1.5. Total bili was elevated at 13.9. CT abdomen/pelvis demonstrated hepatomegaly with findings suggestive of cirrhosis. There was a questionable hypodense mass in the head of the pancreas. Respiratory viral panel was negative. The patient has been primarily managed medically by gastroenterology. He is currently on his fourth unit of blood. The patient remains on pantoprazole, octreotide, acetylcysteine, Pentoxil filing and antimicrobials. There are tentative plans for upper and lower endoscopy later this morning. The patient currently denies any abdominal pain, nausea or vomiting. PFSH Medical History Alcoholic cirrhosis COPD (chronic obstructive pulmonary disease) ETOH abuse Hernia HTN (hypertension) Tobacco use Home Medications ferrous sulfate 325 mg (65 mg iron) tablet (FeroSul) 325 mg PO DAILY SUPPLEMENT 03/15/22 [History Last Taken 03/15/22] furosemide 40 mg tablet 40 mg PO DAILY FLUID 03/15/22 [History Last Taken Unknown] spironolactone 50 mg tablet 50 mg PO BID HTN 03/15/22 [History Last Taken 03/15/22] Allergy/AdvReac Type Severity Reaction Status Date / Time bee venom protein (honey bee) Allergy Hives Verified 03/15/22 12:19 codeine Allergy Hives Verified 03/15/22 12:19 Family History (Updated 03/15/22 @ 15:[address] Nishi Nassar MD) Father Diabetes Hypertension Mother Hypertension Surgical History (Updated 03/15/22 @ 15:[address] Nishi Nassar MD) H/O elbow replacement H/O exploratory laparotomy H/O hernia repair Social History (Updated 03/15/22 @ 15:[address] Nishi Nassar MD) household members: none Smoking Status: Current every day smoker tobacco type: cigarettes Smoking packs per day: 2 Smoking cigarettes per day: 40.0 Years smoked: 49 Smoking pack-years: 98.00 alcohol intake: current alcohol intake frequency: 3 or more drinks per day Alcohol type: beer and hard liquor details: Prior Hx ~ 12 beers daily prior, now reporting 1 pint schnapps daily. substance use type: does not use ROS ROS Narrative 10 systems were reviewed with pertinent positives as noted in the HPI above. Physical Exam Const alert and no apparent distress Constitutional Narrative: Jaundiced in appearance. General Appearance: cooperative HEENT normocephalic and head/scalp atraumatic Eyes PERRL and EOMs intact bilaterally Neck supple General: trachea midline Chest inspection of chest normal Resp normal respiratory effort Auscultation: Negative for rales, rhonchi or wheezes Cardio S1 normal heart sound and S2 normal heart sound Rate: tachycardic GI normal to inspection, nondistended, normoactive bowel sounds Extremity no clubbing, cyanosis or edema Skin no rashes or lesions noted Neuro CN's II-XII intact bilaterally and no focal motor deficits Psych cooperative and affect normal Lab / Micro Data Result Diagrams: 03/17/22 05:50 03/16/22 15:50 Labs: Laboratory Results - last 24 hr 03/15/22 12:30: WBC 15.6 H, RBC 1.57 L, Hgb 4.8 L*, Hct 17.5 L, MCV 111.5 H, MCH 30.6, MCHC 27.4 L, RDW Std Deviation 87.5 H, RDW Coeff of [place] 22.6 H, Plt Count 155, MPV 11.4, Immature Gran % (Auto) 2.500 H, Neut % (Auto) 82.2 H, Lymph % (Auto) 3.2 L, [place] % (Auto) 12.0 H, Eos % (Auto) 0.0, Baso % (Auto) 0.1, Absolute Neuts (auto) 12.8 H, Absolute Lymphs (auto) 0.50 L, Nucleated RBC % 2.0, Diff Path Review May foll, Dohle Bodies RARE, Polychromasia 1+, Hypochromasia 3+, Anisocytosis 3+ 03/15/22 12:30: Blood Type O POSITIVE, Antibody Screen NEGATIVE 03/15/22 12:30: Sodium 133 L, Potassium 3.5, Chloride 100, Carbon Dioxide 18.0 L, Anion Gap 15, BUN 22 H, Creatinine 1.13, Estim Creat Clear Calc 68.10, Est GFR (MDRD) Af Amer 85, Est GFR (MDRD) Non-Af 71, BUN/Creatinine Ratio 19.5, Glucose 128 H, Calcium 8.2 L, Total Bilirubin 13.90 H, AST 55 H, ALT 23, Alkaline Phosphatase 100, Troponin I High Sens 14, Total Protein 6.2 L, Albumin 1.9 L, Globulin 4.3 H, Albumin/Globulin Ratio 0.4 L, Lipase 403 H 03/15/22 12:30: PT 32.1 H, INR 3.2 03/15/22 12:30: Crossmatch See Detail 03/15/22 12:30: Direct Bilirubin 8.15 H 03/15/22 12:30: Phosphorus 2.4 L, Magnesium 1.5 L 03/15/22 12:30: Crossmatch See Detail 03/15/22 13:54: Ethyl Alcohol 34.0 03/15/22 21:35: Hgb 5.9 L*, Hct 19.5 L 03/15/22 23:45: PT 37.4 H, INR 3.8 03/16/22 03:00: WBC DOCTOR OF PODIATRIC MEDICINE, Corrected WBC 8.5, RBC 1.94 L, Hgb 6.0 L*, Hct 19.4 L, MCV 100.0 H D, MCH 30.9, MCHC 30.9 L D, RDW Std Deviation 73.9 H, RDW Coeff of [place] 22.1 H, Plt Count 104 L, MPV 11.1, Neut % (Auto) Not Reportable, Absolute Neuts (auto) 7.5, Absolute Lymphs (auto) 0.09 L, Total Counted 100, Neutrophils % (Manual) 77 H, Band Neutrophils % 3, Lymphocytes % (Manual) 1 L, Monocytes % (Manual) 15 H, Metamyelocytes % 2 H, Myelocytes % 2 H, Nucleated RBCs/100 WBC 6 H, Diff Path Review May foll, Platelet Estimate SLT DEC, Polychromasia 1+, Anisocytosis 2+, Microcytosis 1+, Macrocytosis 1+ 03/16/22 03:00: PT 35.8 H, INR 3.6 03/16/22 03:00: Sodium 135 L, Potassium 2.6 L*, Chloride 102, Carbon Dioxide 25.0, Anion Gap 8, BUN 17, Creatinine 0.81, Estim Creat Clear Calc 95.00, Est GFR (MDRD) Af Amer 126, Est GFR (MDRD) Non-Af 104, BUN/Creatinine Ratio 21.0 H, Glucose 140 H, Calcium 6.7 L, Phosphorus 4.6, Magnesium 1.7, Total Bilirubin 9.80 H, AST 59 H, ALT 23, Alkaline Phosphatase 68, Total Protein 4.7 L, Albumin 1.3 L, Globulin 3.4, Albumin/Globulin Ratio 0.4 L Micro: Microbiology 03/15/22 19:37 Mucosa - Nasopharyngeal Respiratory Panel (PCR) - Final Radiology Impression Abdomen/Pelvis CT 03/15/22 13:28 IMPRESSION: Minimal bilateral pleural effusions with bibasilar atelectasis. Hepatomegaly and findings are suggestive of cirrhosis of the liver. Mild degree of ascites. Small splenic remnants. Findings suggestive of varices. Midline anterior abdominal wall hernia containing nondilated small bowel loops. The neck of the hernia measures 3.9 cm. Small gallstones. Questionable 2.5 cm hypodense mass in the head of the pancreas. Electronically Signed: Girish Lynch MD at 15:03 EST Reading Location ID and State: [facility] / [place] , Service support , Chest X-Ray 03/15/22 18:58 IMPRESSION: No acute cardiopulmonary disease. Electronically Signed: Sergey Dowell DO at 19:23 EST Reading Location ID and State: [facility] / [place] Tel [phone], Service support , Charges/Coding Visit Charges Inpatient E&M: 43533 Init Hosp L3 Behavior Interventions Behavior Intervention: 98882 Smoking Cessation 3-10 min
--- NOTE | 2022-03-16 08:01 | PCM.PN.HOSP ---
Subjective Subjective Patient was seen and examined today in the ICU, he is scheduled to undergo upper endoscopy today, patient has had a history of chronic cirrhosis he presented to the emergency room yesterday with hematemesis and bloody stools. Last hemoglobin this morning was 6, patient has written to receive 4 units of packed red blood cells according to nursing. Patient asked this examiner if his cirrhosis was reversible, I told him no. Objective Data Objective Data Vital Signs: Vital Signs Temp Pulse Resp BP Pulse Ox O2 Del Method 99.2 F H 88 18 119/67 97 Room Air 03/16/22 06:43 03/16/22 07:00 03/16/22 07:00 03/16/22 07:00 03/16/22 07:00 03/16/22 07:00 Oxygen Delivery Method Room Air Weight: 80.8 kg Body Mass Index (BMI) 26.7 Intake & Output: Intake and Output for Last 24 Hours 03/14/22 03/15/22 03/16/22 23:59 23:59 23:59 Intake Total 2279.05 / 2279.05 2378.50 / 2378.50 Output Total 200 / 275 575 / 575 Balance 2079.05 / 2004.05 1803.50 / 1803.50 Lab / Micro Data Result Diagrams: 03/16/22 03:00 03/16/22 03:00 Labs: Laboratory Results - last 24 hr 03/15/22 12:30: WBC 15.6 H, RBC 1.57 L, Hgb 4.8 L*, Hct 17.5 L, MCV 111.5 H, MCH 30.6, MCHC 27.4 L, RDW Std Deviation 87.5 H, RDW Coeff of [place] 22.6 H, Plt Count 155, MPV 11.4, Immature Gran % (Auto) 2.500 H, Neut % (Auto) 82.2 H, Lymph % (Auto) 3.2 L, [place] % (Auto) 12.0 H, Eos % (Auto) 0.0, Baso % (Auto) 0.1, Absolute Neuts (auto) 12.8 H, Absolute Lymphs (auto) 0.50 L, Nucleated RBC % 2.0, Diff Path Review May foll, Dohle Bodies RARE, Polychromasia 1+, Hypochromasia 3+, Anisocytosis 3+ 03/15/22 12:30: Blood Type O POSITIVE, Antibody Screen NEGATIVE 03/15/22 12:30: Sodium 133 L, Potassium 3.5, Chloride 100, Carbon Dioxide 18.0 L, Anion Gap 15, BUN 22 H, Creatinine 1.13, Estim Creat Clear Calc 68.10, Est GFR (MDRD) Af Amer 85, Est GFR (MDRD) Non-Af 71, BUN/Creatinine Ratio 19.5, Glucose 128 H, Calcium 8.2 L, Total Bilirubin 13.90 H, AST 55 H, ALT 23, Alkaline Phosphatase 100, Troponin I High Sens 14, Total Protein 6.2 L, Albumin 1.9 L, Globulin 4.3 H, Albumin/Globulin Ratio 0.4 L, Lipase 403 H 03/15/22 12:30: PT 32.1 H, INR 3.2 03/15/22 12:30: Crossmatch See Detail 03/15/22 12:30: Direct Bilirubin 8.15 H 03/15/22 12:30: Phosphorus 2.4 L, Magnesium 1.5 L 03/15/22 12:30: Crossmatch See Detail 03/15/22 12:30: Crossmatch See Detail 03/15/22 13:54: Ethyl Alcohol 34.0 03/15/22 21:35: Hgb 5.9 L*, Hct 19.5 L 03/15/22 23:45: PT 37.4 H, INR 3.8 03/16/22 03:00: WBC PROFESSOR OF RELIGIOUS STUDIES, Corrected WBC 8.5, RBC 1.94 L, Hgb 6.0 L*, Hct 19.4 L, MCV 100.0 H D, MCH 30.9, MCHC 30.9 L D, RDW Std Deviation 73.9 H, RDW Coeff of [place] 22.1 H, Plt Count 104 L, MPV 11.1, Neut % (Auto) Not Reportable, Absolute Neuts (auto) 7.5, Absolute Lymphs (auto) 0.09 L, Total Counted 100, Neutrophils % (Manual) 77 H, Band Neutrophils % 3, Lymphocytes % (Manual) 1 L, Monocytes % (Manual) 15 H, Metamyelocytes % 2 H, Myelocytes % 2 H, Nucleated RBCs/100 WBC 6 H, Diff Path Review May foll, Platelet Estimate SLT DEC, Polychromasia 1+, Anisocytosis 2+, Microcytosis 1+, Macrocytosis 1+ 03/16/22 03:00: PT 35.8 H, INR 3.6 03/16/22 03:00: Sodium 135 L, Potassium 2.6 L*, Chloride 102, Carbon Dioxide 25.0, Anion Gap 8, BUN 17, Creatinine 0.81, Estim Creat Clear Calc 95.00, Est GFR (MDRD) Af Amer 126, Est GFR (MDRD) Non-Af 104, BUN/Creatinine Ratio 21.0 H, Glucose 140 H, Calcium 6.7 L, Phosphorus 4.6, Magnesium 1.7, Total Bilirubin 9.80 H, AST 59 H, ALT 23, Alkaline Phosphatase 68, Total Protein 4.7 L, Albumin 1.3 L, Globulin 3.4, Albumin/Globulin Ratio 0.4 L Micro: Microbiology 03/15/22 19:37 Mucosa - Nasopharyngeal Respiratory Panel (PCR) - Final Radiography Diagnostic Testing: Radiology Impression Abdomen/Pelvis CT 03/15/22 13:28 IMPRESSION: Minimal bilateral pleural effusions with bibasilar atelectasis. Hepatomegaly and findings are suggestive of cirrhosis of the liver. Mild degree of ascites. Small splenic remnants. Findings suggestive of varices. Midline anterior abdominal wall hernia containing nondilated small bowel loops. The neck of the hernia measures 3.9 cm. Small gallstones. Questionable 2.5 cm hypodense mass in the head of the pancreas. Electronically Signed: Girish Lynch MD at 15:03 EST , Chest X-Ray 03/15/22 18:58 IMPRESSION: No acute cardiopulmonary disease. Electronically Signed: Sergey Dowell DO at 19:23 EST , Physical Exam Const alert, oriented x3 and no apparent distress Constitutional Narrative: Patient appears older than his stated age General Appearance: cooperative, well kempt and well developed Orientation / Consciousness: awake, oriented to person, oriented to place and oriented to time HEENT normocephalic, head/scalp atraumatic and moist oral mucous membranes Eyes PERRL, EOMs intact bilaterally and conjunctivae normal Neck supple, no JVD, thyroid normal and no carotid bruits General: trachea midline Resp normal respiratory effort, no retractions, no use of accessory muscles and clear to auscultation bilaterally Auscultation: Negative for rales, rhonchi or wheezes Cardio regular rate, regular rhythm, S1 normal heart sound, S2 normal heart sound, no murmurs, no rub and no gallops GI soft to palpation and non-tender GI Narrative: Patient's abdomen is distended, it is nontender at this time, bowel sounds are present Extremity no clubbing, cyanosis or edema Skin no rashes or lesions noted General Skin Exam: no breakdown Neuro oriented x3, CN's II-XII intact bilaterally, moves all extremities, no focal motor deficits and no sensory deficits noted Sensorium / Orientation: awake, alert, oriented to person and oriented to place Speech: speech normal Psych affect normal Assessment & Plan Assessment/Plan (1) GI bleed: PLAN: Plan 1. Acute gastrointestinal bleeding secondary to cirrhosis-patient will undergo endoscopy, he is receiving packed red blood cells, patient is on octreotide drip and Protonix drip. Patient is also on Rocephin IV #2 alcoholic cirrhosis-complicates care, management, recovery, and prognosis #3 alcoholism-patient will be monitored for withdrawal symptoms #4 essential hypertension-patient's hypertensive medications will be held at this time due to his suspected ongoing GI bleed #5 hypokalemia-patient is receiving IV potassium supplementation, labs will be monitored Charges/Coding Visit Charges Inpatient E&M: 84536 Subs Hosp L2
[2022-03-16] MEDS: Epinephrine (1 mg/ml) 1 MG/ML VIAL (08:53)
[2022-03-16] MEDS: 0.9% Normal Saline (Pres. free 10 ML Vial (08:53)
--- NOTE | 2022-03-16 09:28 | CT_ITS ---
INDICATION: GI bleed . Clip was placed at the site of bleeding EXAMINATION: CTA abdomen and pelvis - TECHNIQUE: Routine abdominal CT angiogram protocol was performed with IV contrast. MIP images provided. A radiation dose optimization technique was used for this scan. Contrast bolus is limited and in a more of a venous phase than arterial phase during this exam. There is venous phase contrast enhancement of the liver and kidneys. IV Contrast dosage and agent: 100 mL Isovue 370 Radiation dose DLP mGy / cm. COMPARISON: March 15, 2022 CT scan abdomen and pelvis FINDINGS: Lung bases: Since the prior study there is slightly worsening bilateral effusions. There is a small focus of right middle lobe atelectasis and/or fibrotic change. There is a appearance of mild cardiac enlargement. Liver: The liver is enlarged and lobulated. There is ascites and fluid surrounding the liver. Gallbladder: The gallbladder is distended. There are at least 2 gallstones in the gallbladder. Spleen: The spleen has apparently been removed. There is migration of the bowel into the left upper quadrant where there are several splenules or residual splenic material. Adrenal gland: Normal. Kidneys: Normal. No hydronephrosis or stone formation. Pancreas: The tail the pancreas is migrated into the left upper quadrant. There is a enlarged appearance of the head and uncinate process of the pancreas. On image #53 coronal views there is a visualized low attenuating mass measuring 2.2 x 2.4 x 1.9 cm. There is a visualized focus of peripheral enhancement and a small serpiginous vascular structure which may represent neovascularity. This is just medial to 2 clips each measuring 1.5 cm are present within the apparent second part of the duodenum. Bowel gas pattern: There is a mildly thick-walled appearance of the distal esophagus. There is a partially fluid-filled thick-walled appearance of the stomach. There is visualized thickening of the duodenum proximal duodenum. The second and third part of the duodenum show edema and almost thumbprinting pattern similar to the prior study. There is visualized wall thickening and enhancement of the left of midline small bowel image #59. This visualize mesenteric edema. There is visualized midline abdominal wall hernia with mild distention of the small bowel which is similar to the intraperitoneal bowel in caliber. There is a small amount of fluid herniating into this opening. The opening measures approximately 4.9 cm into which mildly distended small bowel herniates with fat and fluid measuring up to 8.2 x 3.6 x 4.5 cm. Is visualized radiopaque material within the colon within the lumen. There is visualized edema and thumbprinting of the cecum. There is diverticulosis. There is a relative decompressed appearance of the descending colon. There is a ratty decompressed with thumbprinting appearance of the sigmoid colon with a visualized decompressed radiodense lumen. The appendix is not visualized. Free air: None. Free fluid: There is visualized ascites. This is similar to the prior study. Pelvis: Pelvic organs: The bladder is filled with contrast consistent with a delayed image. Prostate is borderline enlarged. There is visualized large left-sided fatty inguinal hernia. Bone survey: There is visualized degenerative change within the thoracolumbar spine. There is multilevel spondylosis. There is a broad disc bulge L3-L4 L4-L5 and L5-S1 with moderate neural foramina narrowing moderate central stenosis. Adenopathy: No significant pathologic adenopathy detected. Other: There visualized mild body wall edema. Vascular: Aorta is torturous. The aorta is minimally calcified at the take off of the celiac and spur mesenteric arteries. Aorta demonstrates normal caliber and course. There is mild calcification of bilateral common iliac arteries. CT/CT ANGIO ABD&PEL W/O&W/DYE IMPRESSION: Visualized 1.5 cm clips within the first part of the duodenum. There is an overall pattern of wall thickening of the stomach small bowel and large bowel. There is a decompressed appearance of the colon with thumbprinting and a hyperdense decompressed appearing lumen that may represent contrast and are potentially blood. Thumbprinting and edema can be associated with pseudomembranous colitis or inflammatory bowel disease or potentially hemorrhagic colitis Enlarged lobulated liver with hypertrophy left hepatic lobe consistent with cirrhosis. There is visualized ascites. Cholelithiasis. Findings highly suspicious for a mass within the head of the pancreas for which further a radiation is recommended. There is nearly at the same level as the reported GI bleeding clips. Persistent midline abdominal wall hernia containing distended bowel loops. Diverticulosis. Status post splenectomy with residual splenules. Interval worsening of bilateral effusions. Cardiomegaly. Electronically Signed: Imelda Mirza MD at 12:02 EST Reading Location ID and State: [facility] / [place] Tel , Service support ,
--- NOTE | 2022-03-16 09:28 | OP.EGD_ITS ---
Patient Name: Dakotah La Procedure Date: 03/16/2022 7:26 AM Date of : 1960 Age: 61 Procedure: Upper GI endoscopy Indications: Hematochezia, Melena Providers: Kevin Burnette DO Medicines: Monitored Anesthesia Care Patient Profile: This is a 61 year old male. Refer to note in patient chart for documentation of history and physical. Patient has symptoms of acute epigastric abdominal pain and acute nausea. Complications: No immediate complications. Procedure: Pre-Anesthesia Assessment: - Prior to the procedure, a History and Physical was performed, and patient medications and allergies were reviewed. The patient is competent. The risks and benefits of the procedure and the sedation options and risks were discussed with the patient. All questions were answered and informed consent was obtained. Patient identification and proposed procedure were verified by the physician in the pre-procedure area. Mental Status Examination: alert and oriented. Airway Examination: normal oropharyngeal airway and neck mobility. Respiratory Examination: clear to auscultation. CV Examination: normal. Prophylactic Antibiotics: The patient does not require prophylactic antibiotics. Prior Anticoagulants: The patient has taken no previous anticoagulant or antiplatelet agents. ASA Grade Assessment: II - A patient with mild systemic disease. After reviewing the risks and benefits, the patient was deemed in satisfactory condition to undergo the procedure. The anesthesia plan was to use monitored anesthesia care (MAC). Immediately prior to administration of medications, the patient was re-assessed for adequacy to receive sedatives. The heart rate, respiratory rate, oxygen saturations, blood pressure, adequacy of pulmonary ventilation, and response to care were monitored throughout the procedure. The physical status of the patient was re-assessed after the procedure. After obtaining informed consent, the endoscope was passed under direct vision. Throughout the procedure, the patient's blood pressure, pulse, and oxygen saturations were monitored continuously. The Endoscope was introduced through the mouth, and advanced to the second part of duodenum. The upper GI endoscopy was accomplished without difficulty. The patient tolerated the procedure well. The Duodenoscope was introduced through the mouth, and advanced to the. Scope In: Scope Out: 7:50:36 AM Findings: LA Grade B (one or more mucosal breaks greater than 5 mm, not extending between the tops of two mucosal folds) esophagitis with no bleeding was found 36 to 39 cm from the incisors. A small hiatal hernia was present. Mild portal hypertensive gastropathy was found in the entire examined stomach. Localized mild inflammation characterized by congestion (edema) and erythema was found in the gastric antrum. Red blood was found in the second portion of the duodenum. A single 6 mm angiodysplastic lesion with bleeding was found in the area of the papilla. Area was successfully injected with 2 mL of a 1:10,000 solution of epinephrine for hemostasis. For hemostasis, two hemostatic clips were successfully placed. There was no bleeding at the end of the procedure. The clip is possibly over the ampulla as it was not able to be seen with a side-viewing scope after the clip was placed with a front viewing scope to stop the bleeding. Impression: - LA Grade B erosive esophagitis. - Small hiatal hernia. - Portal hypertensive gastropathy. - Gastritis. - Blood in the second portion of the duodenum. - A single bleeding angiodysplastic lesion in the duodenum. Injected. Clips were placed. - No specimens collected. - CT angiography to see if this bleed is secondary to hemobilia and to identify the location of the clip in reference to the ampulla because it was not fully seen. Recommendation: - [facility]. - NPO. - Continue present medications. Procedure Code(s): --- Professional --- 05221, Esophagogastroduodenoscopy, flexible, transoral; with control of bleeding, any method CPT copyright 2017 [employer]. All rights reserved. The codes documented in this report are preliminary and upon swine genetics researcher review may be revised to meet current compliance requirements. Kevin Burnette DO 03/16/2022 9:28:23 AM This report has been signed electronically. Number of Addenda: 0 Note Initiated On: 03/16/2022 7:26 AM
--- NOTE | 2022-03-16 09:29 | OP.CCLET_ITS ---
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 Schuler This procedure was performed on Wednesday, March 16, 2022. My impressions and recommendations are as follows: Impressions : - LA Grade B erosive esophagitis. - Small hiatal hernia. - Portal hypertensive gastropathy. - Gastritis. - Blood in the second portion of the duodenum. - A single bleeding angiodysplastic lesion in the duodenum. Injected. Clips were placed. - No specimens collected. - CT angiography to see if this bleed is secondary to hemobilia and to identify the location of the clip in reference to the ampulla because it was not fully seen. Recommendations : - [facility]. - NPO. - Continue present medications. My findings are described in the full procedure note, which is enclosed. If I can be of further assistance, please feel free to contact me at . Sincerely, Kevin Burnette, 03/16/2022 9:28:23 AM This report has been signed electronically.
[2022-03-16] MEDS: LORazepam 2 MG/ML Syringe IV (10:46)
[2022-03-16] MEDS: 0.9% Saline Lock 10 ML Syringe IV ×2 (10:46→17:26)
[2022-03-16 16:09] LABS: Potassium 3.9 mmol/L (3.5-5.1)
--- NOTE | 2022-03-16 16:40 | CASEMGMT ---
RN CM NOTE: RN CM to room to complete initial assessment. Pt sleeping and did not awaken when spoken to. Per RNCarmelina, pt has been medicated w/Ativan. Assessment deferred at this time. Sushila BSN RN CM
--- NOTE | 2022-03-16 17:11 | CASEMGMT ---
HARINI HAWKINS NOTE: Insurance review for hospitals In-network with [employer] if transfer is recommended is as follows: [facility], [facility], [facility], [facility], [facility], [facility], [facility] ([facility]), and . Sushila MILLERN HARINI CM
--- NOTE | 2022-03-16 21:29 | NURSING ---
Lab unable to see order for 2 additional units of PRBCs ordered by ramon SCHULER around [address] Burnette. New order placed by this RN.
[2022-03-16] MEDS: Albuterol 2.5 MG/3 ML VIAL.NEB. INHALATION (22:13)
[2022-03-16] MEDS: Furosemide 20 MG/2 ML VIAL 40 MG IV (23:09)
[2022-03-17] VITALS (22 sets, daily range): BP systolic 113–145; BP diastolic 75–97; PULSE 70–85; RESP 15–23; TEMP 36.6–37.6; O2SAT 93–100; BMI 28.6
[2022-03-17] MEDS: KCL 40mEq in 0.9% NS 40 MEQ/1,000 ML IV.SOLN 100 MEQ IV (01:03)
[2022-03-17] MEDS: CHLORHEXIDINE GLUC 2% CLOTH 1 EACH TOWELETTE TOPICAL (03:46)
[2022-03-17] MEDS: 0.9% Saline Lock 10 ML Syringe IV ×3 (05:07→10:48)
[2022-03-17 06:00] LABS: Hematocrit 29.8 % (40-54); Hemoglobin 9.6 g/dL (13.0-16.5); POSITIVE COUNT YES
--- NOTE | 2022-03-17 06:00 | PCM.PN.INT ---
Assessment & Plan Assessment/Plan (1) GI bleed: PLAN: Plan RECOMMENDATIONS: 1. Transfusion of blood products to maintain a hemoglobin at or above 7 g/dL. 2. Continue PPI therapy, octreotide, and pentoxifylline per GI recommendations. 3. Continue nicotine replacement therapy. 4. Continue thiamine and folic acid. 5. Monitor for signs of alcohol withdrawal. 6. Administer IV Lasix x1 this morning. IMPRESSIONS: 1. Acute blood loss anemia Secondary to gastrointestinal hemorrhage in the setting of decompensated cirrhosis related to alcohol dependency. Gastroenterology is currently following to assist with medical management. Continue supportive measures including transfusion of blood products to maintain a hemoglobin at or above 7 g/dL. In light of his wheezing on exam today coupled with significant blood product administration, will administer IV Lasix. 2. Decompensated cirrhosis related to alcoholism Continue primary medical management per gastroenterology recommendations. 3. Chronic alcohol and tobacco dependency Agree with initiation of folic acid and thiamine. The patient will need to be monitored closely for any signs of alcohol withdrawal. His last alcohol consumption was reported on March 15. Tobacco cessation counseling was provided. Nicotine replacement therapy will be continued while the patient is admitted to the hospital. This note was generated with [employer] dictation software. It may contain incorrect words, spelling, and punctuation that were not noted in checking the note before signing. Subjective Subjective The patient was seen and examined at the bedside this morning. Events from the last 24 hours have been reviewed. The patient is currently afebrile, hemodynamically stable and maintaining appropriate oxygen saturations on room air. To date, the patient has received a total of 7 units of packed red blood cells and 4 units of FFP. He did receive a one-time dose of IV Lasix overnight. The patient is currently documented to be overall net +5 L for the hospitalization. Hemoglobin this morning was noted to be 9.6 g/dL. Upper endoscopy completed yesterday demonstrated erosive esophagitis, portal hypertensive gastropathy, gastritis and an angiodysplastic lesion in the duodenum which was injected and clipped. The patient does report a mild degree of shortness of breath this morning along with chronic back pain. Objective Data Objective Data The patient's most recent lab work, culture data and imaging studies have all been personally reviewed. Vital Signs: Vital Signs Temp Pulse Resp BP Pulse Ox O2 Del Method O2 Flow Rate 98.7 F 78 23 H 141/84 H 96 Nasal Cannula 2 12/04/22 05:00 03/17/22 05:00 03/17/22 05:00 03/17/22 05:00 03/17/22 05:00 03/17/22 05:00 03/17/22 05:00 Oxygen Flow Rate (L/min) 2 Oxygen Delivery Method Nasal Cannula Weight: 188 lb 14.978 oz Body Mass Index (BMI) 26.7 Intake & Output: Intake and Output for Last 24 Hours 03/15/22 03/16/22 03/17/22 23:59 23:59 23:59 Intake Total 2279.05 / 2279.05 5535.73 / 5535.73 1708.33 / 1708.33 Output Total 200 / 275 1550 / 2875 2825 / 2825 Balance 2079.05 / 2004.05 3985.73 / 2660.73 -1116.67 / -1116.67 Lab / Micro Data Attestation: I reviewed the patient's lab results. Result Diagrams: 03/17/22 05:50 03/17/22 05:50 Labs: Laboratory Results - last 24 hr 03/15/22 12:30: Crossmatch See Detail 03/15/22 12:30: Crossmatch See Detail 03/16/22 12:30: Crossmatch See Detail 03/16/22 15:50: Potassium 3.9 Micro: Microbiology 03/15/22 19:37 Mucosa - Nasopharyngeal Respiratory Panel (PCR) - Final Radiography Diagnostic Testing: Radiology Impression Abdomen/Pelvis CTA 03/16/22 09:28 IMPRESSION: Visualized 1.5 cm clips within the first part of the duodenum. There is an overall pattern of wall thickening of the stomach small bowel and large bowel. There is a decompressed appearance of the colon with thumbprinting and a hyperdense decompressed appearing lumen that may represent contrast and are potentially blood. Thumbprinting and edema can be associated with pseudomembranous colitis or inflammatory bowel disease or potentially hemorrhagic colitis Enlarged lobulated liver with hypertrophy left hepatic lobe consistent with cirrhosis. There is visualized ascites. Cholelithiasis. Findings highly suspicious for a mass within the head of the pancreas for which further a radiation is recommended. There is nearly at the same level as the reported GI bleeding clips. Persistent midline abdominal wall hernia containing distended bowel loops. Diverticulosis. Status post splenectomy with residual splenules. Interval worsening of bilateral effusions. Cardiomegaly. Electronically Signed: Imelda Mirza MD at 12:02 EST , Physical Exam Const alert and no apparent distress Constitutional Narrative: Jaundiced in appearance. General Appearance: cooperative HEENT normocephalic and head/scalp atraumatic Eyes PERRL and EOMs intact bilaterally Neck supple General: trachea midline Chest inspection of chest normal Resp normal respiratory effort Auscultation: wheezes scattered wheezes; Negative for rales or rhonchi Cardio regular rate, regular rhythm, S1 normal heart sound and S2 normal heart sound GI normal to inspection, nondistended, normoactive bowel sounds Extremity no clubbing, cyanosis or edema Skin no rashes or lesions noted Neuro CN's II-XII intact bilaterally and no focal motor deficits Psych cooperative and affect normal Charges/Coding Visit Charges Inpatient E&M: 60881 Subs Hosp L3
[2022-03-17 07:23] LABS: Anion Gap 3 (5-15); BUN 13 mg/dL (7-18); Calcium,Total 7.6 mg/dL (8.5-10.1); Chloride 106 mmol/L (98-107); Creatinine, Serum 0.76 mg/dL (0.70-1.30); EST Glomerular Filtration Rate 111 mL/min (>60); Est Glom Filt Rate - Afr Amer 134 mL/min (>60); Estimated Creatinine Clearance 101.25 ml/min; Glucose 148 mg/dL (74-106); Magnesium 1.8 mg/dL (1.6-2.6); Phosphorus 2.8 mg/dL (2.5-4.9); Potassium 3.1 mmol/L (3.5-5.1); Sodium Level 138 mmol/L (136-145)
[2022-03-17] MEDS: Furosemide 40 MG/4 ML Vial IV (08:02)
[2022-03-17] MEDS: Folic Acid 1 MG Tablet PO (14:24)
[2022-03-17] MEDS: Thiamine Hydrochloride 100 MG Tablet PO (14:24)
[2022-03-17] MEDS: Pentoxifylline 400 MG Tablet PO ×2 (14:25→20:05)
--- NOTE | 2022-03-17 16:18 | PCM.PN.HOSP ---
Subjective Subjective Patient was seen and examined today, he does not complain of any abdominal discomfort, hemoglobin this morning was 9.6. Bilirubin today was 8.7. Patient appears stable to move out to the floor, he will need an MRCP done tomorrow. Objective Data Objective Data Vital Signs: Vital Signs Temp Pulse Resp BP Pulse Ox O2 Del Method O2 Flow Rate 99.6 F H 77 19 H 142/86 H 96 Room Air 2 03/17/22 15:51 03/17/22 15:51 03/17/22 15:51 03/17/22 15:51 03/17/22 15:51 03/17/22 15:51 03/17/22 05:00 Oxygen Flow Rate (L/min) 2 Oxygen Delivery Method Room Air Weight: 85.7 kg Body Mass Index (BMI) 26.7 Intake & Output: Intake and Output for Last 24 Hours 03/15/22 03/16/22 03/17/22 23:59 23:59 23:59 Intake Total 2279.05 / 2279.05 5535.73 / 5535.73 3960.47 / 3960.47 Output Total 200 / 275 1550 / 2875 6175 / 6175 Balance 2079.05 / 2004.05 3985.73 / 2660.73 -2214.53 / -2214.53 Lab / Micro Data Result Diagrams: 03/17/22 05:50 03/17/22 05:50 Labs: Laboratory Results - last 24 hr 03/15/22 12:30: Crossmatch See Detail 03/16/22 12:30: Crossmatch See Detail 03/17/22 05:50: Hgb 9.6 L, Hct 29.8 L 03/17/22 05:50: Sodium 138, Potassium 3.1 L, Chloride 106, Carbon Dioxide 29.0, Anion Gap 3 L, BUN 13, Creatinine 0.76, Estim Creat Clear Calc 101.25, Est GFR (MDRD) Af Amer 134, Est GFR (MDRD) Non-Af 111, BUN/Creatinine Ratio 17.0, Glucose 148 H, Calcium 7.6 L, Phosphorus 2.8, Magnesium 1.8 03/17/22 09:40: Total Bilirubin 8.70 H Micro: Microbiology 03/15/22 19:37 Mucosa - Nasopharyngeal Respiratory Panel (PCR) - Final Physical Exam Const alert, oriented x3 and no apparent distress Constitutional Narrative: Patient appears jaundiced General Appearance: cooperative, well kempt and well developed Orientation / Consciousness: awake, oriented to person, oriented to place and oriented to time HEENT normocephalic, head/scalp atraumatic and moist oral mucous membranes Eyes PERRL, EOMs intact bilaterally and conjunctivae normal Neck supple, no JVD, thyroid normal and no carotid bruits General: trachea midline Resp normal respiratory effort, no retractions, no use of accessory muscles and clear to auscultation bilaterally Auscultation: Negative for rales, rhonchi or wheezes Cardio regular rate, regular rhythm, S1 normal heart sound, S2 normal heart sound, no murmurs, no rub and no gallops GI normal to inspection, nondistended, normoactive bowel sounds, soft to palpation, non-tender and non-distended Extremity no clubbing, cyanosis or edema Skin no rashes or lesions noted General Skin Exam: no breakdown Neuro oriented x3, CN's II-XII intact bilaterally, moves all extremities, no focal motor deficits and no sensory deficits noted Sensorium / Orientation: awake and alert Speech: speech normal Psych affect normal Assessment & Plan Assessment/Plan (1) GI bleed: PLAN: Plan 1. Acute gastrointestinal bleeding secondary to gastritis and angiodysplasia in the duodenum-requiring blood transfusion. Patient has suspected hemobilia, MRCP will be performed tomorrow. Patient appears stable for transfer to PCU. #2 possible mass within the head of the pancreas-MRCP will be performed tomorrow. #3 alcoholic cirrhosis-complicates care, management, recovery, and prognosis #4 alcoholism-patient will be monitored for withdrawal symptoms, he presently does not show any symptoms of alcohol withdrawal #5 essential hypertension-patient's hypertensive medications will be held at this time due to his suspected ongoing GI bleed #6 hypokalemia-patient will receive IV potassium chloride #7 jaundice secondary to alcoholic cirrhosis-complicates care, management, recovery, and prognosis I do not think the patient currently needs IV antibiotics, he has no evidence of pneumonia at this time Charges/Coding Visit Charges Inpatient E&M: 85907 Subs Hosp L2
[2022-03-17] MEDS: Potassium Chloride 10mEq/100mL 10 MEQ/100 ML IV.SOLN. 100 MEQ IV BOLUS ×2 (18:36→20:03)
[2022-03-17] MEDS: Spironolactone 25 MG Tablet PO (20:06)
[2022-03-18] VITALS (12 sets, daily range): BP systolic 117–162; BP diastolic 79–93; PULSE 62–87; RESP 13–17; TEMP 36.6–36.9; O2SAT 93–98
[2022-03-18 04:04] LABS: Absolute Lymphocyte Count 0.74 X10^3/uL (0.83-4.51); Absolute Neutrophil Count 4.8 X10^3/uL (2.0-7.7); Basophil# 0.02 X10^3/uL; Basophil% 0.3 % (0-1); Eosinophil# 0.02 X10^3/uL; Eosinophils% 0.3 % (0-5); Hematocrit 30.7 % (40-54); Hemoglobin 9.8 g/dL (13.0-16.5); Lymphocyte # 0.74 X10^3/ul (0.83-4.51); Lymphocyte % 9.6 % (19-41); Mean Corp Hgb Conc 31.9 g/dL (32-36); Mean Corpuscular Hgb 30.2 pg (27.0-32.0); Mean Corpuscular Volume 94.5 fL (80-94); Monocyte# 1.91 X10^3/uL; Monocyte% 24.9 % (0-10); NRBC Flagged by Analyzer 12.3 % (0-5); Neutrophil # 4.79 X10^3/uL (2.7-7.7); Neutrophil % 62.4 % (47-70); POSITIVE COUNT YES; POSITIVE DIFFERENTIAL YES; POSITIVE MORPHOLOGY YES; Platelet Count 84 K/mm3 (150-450); RBC Distribution Width CV 20.2 % (11.6-14.6); RBC Distribution Width SD 60.9 fl (35.1-43.9); Red Blood Count 3.25 M/mm3 (4.6-6.2); White Blood Count 7.7 K/mm3 (4.4-11.0)
[2022-03-18 04:12] LABS: International Normalized Ratio 2.1; Partial Thromboplast Time 38.3 Seconds (24.1-36.2); Prothrombin Time (Protime)PT. 22.8 SECONDS (11.7-14.9)
[2022-03-18 04:14] LABS: Differential Indicated SCAN CRITERIA MET
[2022-03-18 04:46] LABS: AST(SGOT) 93 U/L (15-37); Alanine Aminotransfer ALT/SGPT 28 U/L (16-61); Albumin, Serum 1.6 g/dL (3.2-5.0); Alkaline Phosphatase 86 U/L (45-117); Anion Gap 5 (5-15); BUN 16 mg/dL (7-18); BUN/Creat Ratio 23.9 RATIO (10-20); Bilirubin, Direct 3.73 mg/dL (0.00-0.30); Calcium,Total 7.5 mg/dL (8.5-10.1); Chloride 101 mmol/L (98-107); Creatinine, Serum 0.67 mg/dL (0.70-1.30); EST Glomerular Filtration Rate 129 mL/min (>60); Est Glom Filt Rate - Afr Amer 156 mL/min (>60); Estimated Creatinine Clearance 114.85 ml/min; Globulin 3.7 g/dL (2.2-4.2); Glucose 124 mg/dL (74-106); Potassium 4.4 mmol/L (3.5-5.1); Protein, Total 5.3 g/dL (6.4-8.2); Sodium Level 135 mmol/L (136-145)
[2022-03-18 05:14] LABS: Anisocytosis 2+; Burr Cells RARE; Macrocytosis RARE; Platelet Estimate MOD DEC (ADEQ); Polychromasia 1+
[2022-03-18] MEDS: 0.9% Saline Lock 10 ML Syringe IV (06:48)
--- NOTE | 2022-03-18 09:00 | MRI_ITS ---
STUDY: MR MRCP WITHOUT CONTRAST REASON FOR EXAM: Male, 61 years old. pancreatic mass TECHNIQUE: Standard MRCP technique was utilized. COMPARISON: CT 03/15/2022 FINDINGS: Gall Bladder: Small filling defects consistent with stones. Cystic duct: Normal with no demonstrated fixed filling defect. Intrahepatic ducts: Normal visualized intrahepatic ducts with no demonstrated fixed filling defect, dilation or stricture. Common hepatic duct: Normal with no demonstrated fixed filling defect, dilation or stricture. Common bile duct: Normal with no demonstrated fixed filling defect, dilation or stricture. Pancreatic duct: Normal with no demonstrated fixed filling defect, dilation or stricture. MRI/MRCP Abdomen without Contrast IMPRESSION: Cholelithiasis without biliary ductal dilatation. Electronically Signed: Lionel Huitron MD at 14:57 EST ,
--- NOTE | 2022-03-18 09:42 | PN.CC_ITS ---
Assessment & Plan Assessment/Plan (1) GI bleed: PLAN: Plan RECOMMENDATIONS: 1. Transfusion of blood products to maintain a hemoglobin at or above 7 g/dL. 2. Continue PPI therapy per GI recommendations. 3. Continue nicotine replacement therapy. 4. Continue thiamine and folic acid. 5. Monitor for signs of alcohol withdrawal. 6. Await results of MRCP 7. We will sign off from a critical care perspective IMPRESSIONS: 1. Acute blood loss anemia Secondary to gastrointestinal hemorrhage in the setting of decompensated cirrhosis related to alcohol dependency. Gastroenterology is currently following to assist with medical management. Continue supportive measures including transfusion of blood products to maintain a hemoglobin at or above 7 g/dL. H&H appears to be relatively stable. Work-up underway for pancreatic and biliary complications. Patient currently hemodynamically stable on room air. Will sign off from a critical care perspective. Could challenge with diuretics intermittently. Patient would benefit from ambulation. 2. Decompensated cirrhosis related to alcoholism Continue primary medical management per gastroenterology recommendations. 3. Chronic alcohol and tobacco dependency Agree with initiation of folic acid and thiamine. The patient will need to be monitored closely for any signs of alcohol withdrawal. His last alcohol consumption was reported on March 15. Risk for acute withdrawal minimal at this point. Tobacco cessation counseling was provided. Nicotine replacement therapy will be continued while the patient is admitted to the hospital. Subjective Subjective Patient did okay overnight. Patient continues to report frequent bowel movements. Patient is not reporting any chest pain this morning. Patient does believe that he is breathing easier. Objective Data Objective Data Vital Signs: Vital Signs Temp Pulse Resp BP Pulse Ox O2 Del Method O2 Flow Rate 36.7 C 85 17 128/79 H 95 Room Air 2 03/18/22 08:00 03/18/22 08:00 03/18/22 08:00 03/18/22 08:00 03/18/22 08:00 03/18/22 08:38 03/17/22 05:00 Oxygen Flow Rate (L/min) 2 Oxygen Delivery Method Room Air Weight: 86.2 kg Body Mass Index (BMI) 28.6 Intake & Output: Intake and Output for Last 24 Hours 03/16/22 03/17/22 03/18/22 23:59 23:59 23:59 Intake Total 5535.73 / 5535.73 5370.47 / 5370.47 91.83 / 91.83 Output Total 1550 / 2875 6475 / 6475 175 / 175 Balance 3985.73 / 2660.73 -1104.53 / -1104.53 -83.17 / -83.17 Lab / Micro Data Attestation: I reviewed the patient's lab results. Result Diagrams: 03/18/22 03:46 03/18/22 03:46 Labs: Laboratory Results - last 24 hr 03/17/22 09:40: Total Bilirubin 8.70 H 03/18/22 03:46: WBC 7.7, RBC 3.25 L, Hgb 9.8 L, Hct 30.7 L, MCV 94.5 H D, MCH 30.2, MCHC 31.9 L, RDW Std Deviation 60.9 H, RDW Coeff of [place] 20.2 H, Plt Count 84 L, MPV 12.0, Immature Gran % (Auto) 2.500 H, Neut % (Auto) 62.4, Lymph % (Auto) 9.6 L, [place] % (Auto) 24.9 H, Eos % (Auto) 0.3, Baso % (Auto) 0.3, Absolute Neuts (auto) 4.8, Absolute Lymphs (auto) 0.74 L, Nucleated RBC % 12.3 H , Platelet Estimate MOD DEC, Polychromasia 1+, Anisocytosis 2+, Macrocytosis RARE, Jarred Cells RARE 03/18/22 03:46: PT 22.8 H, INR 2.1, APTT 38.3 H 03/18/22 03:46: Sodium 135 L, Potassium 4.4, Chloride 101, Carbon Dioxide 29.0, Anion Gap 5, BUN 16, Creatinine 0.67 L, Estim Creat Clear Calc 114.85, Est GFR (MDRD) Af Amer 156, Est GFR (MDRD) Non-Af 129, BUN/Creatinine Ratio 23.9 H, Glucose 124 H, Calcium 7.5 L, Total Bilirubin 7.60 H, Direct Bilirubin 3.73 H, AST 93 H, ALT 28, Alkaline Phosphatase 86, Total Protein 5.3 L, Albumin 1.6 L, Globulin 3.7 Micro: Microbiology 03/15/22 19:37 Mucosa - Nasopharyngeal Respiratory Panel (PCR) - Final Physical Exam Const alert, oriented x3 and no apparent distress Constitutional Narrative: Jaundiced in appearance. General Appearance: cooperative HEENT normocephalic and head/scalp atraumatic Eyes PERRL and EOMs intact bilaterally Sclera: sclera abnormal Positive for bilateral Details: other (Icterus) Neck supple General: trachea midline Chest inspection of chest normal Resp normal respiratory effort Auscultation: wheezes scattered wheezes (At end exhalation) and diminished lung sounds; Negative for rales or rhonchi Cardio regular rate, regular rhythm, S1 normal heart sound, S2 normal heart sound, no murmurs, no rub and no gallops GI normal to inspection, nondistended, normoactive bowel sounds Extremity no clubbing, cyanosis or edema Skin no rashes or lesions noted Neuro CN's II-XII intact bilaterally and no focal motor deficits Psych cooperative and affect normal Charges/Coding Visit Charges Inpatient E&M: 82533 Subs Hosp L3
--- NOTE | 2022-03-18 10:27 | PCM.PN.HOSP ---
Subjective Subjective Feels better than when he came in, no issues overnight Objective Data Objective Data Vital Signs: Vital Signs Temp Pulse Resp BP Pulse Ox O2 Del Method O2 Flow Rate 98.0 F 85 17 128/79 H 95 Room Air 2 03/18/22 08:00 03/18/22 08:00 03/18/22 08:00 03/18/22 08:00 03/18/22 08:00 03/18/22 08:38 03/17/22 05:00 Oxygen Flow Rate (L/min) 2 Oxygen Delivery Method Room Air Weight: 190 lb 0.615 oz Body Mass Index (BMI) 28.6 Intake & Output: Intake and Output for Last 24 Hours 03/17/22 03/18/22 03/19/22 03:59 03:59 03:59 Intake Total 6033.06 / 6033.06 4062.14 / 4062.14 91.83 / 91.83 Output Total 3925 / 3925 3650 / 3650 175 / 175 Balance 2108.06 / 2108.06 412.14 / 412.14 -83.17 / -83.17 Lab / Micro Data Result Diagrams: 03/18/22 03:46 03/18/22 03:46 Labs: Laboratory Results - last 24 hr 03/18/22 03:46: WBC 7.7, RBC 3.25 L, Hgb 9.8 L, Hct 30.7 L, MCV 94.5 H D, MCH 30.2, MCHC 31.9 L, RDW Std Deviation 60.9 H, RDW Coeff of [place] 20.2 H, Plt Count 84 L, MPV 12.0, Immature Gran % (Auto) 2.500 H, Neut % (Auto) 62.4, Lymph % (Auto) 9.6 L, [place] % (Auto) 24.9 H, Eos % (Auto) 0.3, Baso % (Auto) 0.3, Absolute Neuts (auto) 4.8, Absolute Lymphs (auto) 0.74 L, Nucleated RBC % 12.3 H, Platelet Estimate MOD DEC, Polychromasia 1+, Anisocytosis 2+, Macrocytosis RARE, Lenora Cells RARE 03/18/22 03:46: PT 22.8 H, INR 2.1, APTT 38.3 H 03/18/22 03:46: Sodium 135 L, Potassium 4.4, Chloride 101, Carbon Dioxide 29.0, Anion Gap 5, BUN 16, Creatinine 0.67 L, Estim Creat Clear Calc 114.85, Est GFR (MDRD) Af Amer 156, Est GFR (MDRD) Non-Af 129, BUN/Creatinine Ratio 23.9 H, Glucose 124 H, Calcium 7.5 L, Total Bilirubin 7.60 H, Direct Bilirubin 3.73 H, AST 93 H, ALT 28, Alkaline Phosphatase 86, Total Protein 5.3 L, Albumin 1.6 L, Globulin 3.7 Micro: Microbiology 03/15/22 19:37 Mucosa - Nasopharyngeal Respiratory Panel (PCR) - Final Physical Exam Narrative General: Alert, Oriented x3, Cooperative, No apparent distress HEENT: Atraumatic, PERRLA, EOMI, Normocephalic Oral: Moist Mucosa Neck: Supple, No JVD Lungs: Diminished, Normal air movement, No rhonchi, wheeze, No rales Cardiovascular: Regular rate, Regular Rhythm, Normal S1, Normal S2, No murmurs Abdomen: Soft, Non Tender, Non-Distended, No Hepato-splenomegaly Extremities: No edema, Capillary Refill Less than 3 Seconds Skin: No rashes, No breakdown Musculoskeletal: No Tenderness to Palpation of Joints or Extremities Neurological: Cranial nerves II-XII grossly intact, Motor Exam 5/5 strength throughout, Sensory exam intact to light touch and pain Psych/Mental Status: Normal Affect, Appropriate Assessment & Plan Assessment/Plan (1) GI bleed: PLAN: Plan 1. Anemia secondary to acute GI bleeding from gastritis and angiodysplasias of the duodenum ? We will transfuse as necessary ? Continue with PPI ? Appreciate gastroenterology's assistance ? There is concern for hemobilia so an MRCP is planned for today to further assess for the possibility of a mass at the head of the pancreas 2. Alcoholic cirrhosis with alcoholic hepatitis/jaundice ? We will continue with CIWA protocol and Ativan is available for withdrawal symptom 3. HTN ? We will do some blood pressure medication secondary to his bleeding DVT: SCDs Charges/Coding Visit Charges Inpatient E&M: 12751 Subs Hosp L2
--- NOTE | 2022-03-18 11:05 | CASEMGMT ---
HARINI HAWKINS Face to Face with patient for initial transition planning/care coordination assessment. RN SHRUTHI introduced self and role at [facility]. Patient lying in bed, alert and oriented. Patient willing to participate in assessment and is able to answer all questions appropriately. Care providers, pharmacy, and demographics verified. Patient wishes to discharge home, denies need for home health at this time. Patient states he has no further needs or concerns at this time. CM to follow for discharge planning needs that may arise. 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 Patient states he is independent. Transportation: friends DME/HHC: Patient states he has crutches. No previous HHC or SNF. Disposition Plan: Patient to discharge home with follow-up plans in place. Deb NEELY, RN, CM
[2022-03-18] MEDS: Folic Acid 1 MG Tablet PO (13:26)
[2022-03-18] MEDS: Ferrous Sulfate 325 MG Tablet PO (13:26)
[2022-03-18] MEDS: Thiamine Hydrochloride 100 MG Tablet PO (13:27)
[2022-03-18] MEDS: Pentoxifylline 400 MG Tablet PO ×2 (13:27→17:54)
[2022-03-18] MEDS: Spironolactone 25 MG Tablet PO ×2 (13:27→21:04)
[2022-03-18 14:15] LABS: Pathologist Review Reviewed
[2022-03-18 14:19] LABS: Pathologist Review Reviewed
--- NOTE | 2022-03-18 16:26 | PN_ITS ---
Subjective Subjective Patient is feeling a lot better today. He is not having episodes of delirium tremens and has not had any episodes of melanotic stool. Objective Data Objective Data Vital Signs: Vital Signs Temp Pulse Resp BP Pulse Ox O2 Del Method O2 Flow Rate 98.4 F 81 17 160/87 H 98 Room Air 2 03/18/22 13:48 03/18/22 16:00 03/18/22 13:48 03/18/22 13:48 03/18/22 13:48 03/18/22 13:49 03/17/22 05:00 Oxygen Flow Rate (L/min) 2 Oxygen Delivery Method Room Air Weight: 190 lb 0.615 oz Body Mass Index (BMI) 28.6 Intake & Output: Intake and Output for Last 24 Hours 03/16/22 03/17/22 03/18/22 23:59 23:59 23:59 Intake Total 5535.73 / 5535.73 5370.47 / 5370.47 141.00 / 141.00 Output Total 1550 / 2875 6475 / 6475 325 / 325 Balance 3985.73 / 2660.73 -1104.53 / -1104.53 -184.00 / -184.00 Lab / Micro Data Result Diagrams: 03/18/22 03:46 03/18/22 03:46 Labs: Laboratory Results - last 24 hr 03/15/22 12:30: Diff Path Review Reviewed 03/16/22 03:00: Diff Path Review Reviewed 03/18/22 03:46: WBC 7.7, RBC 3.25 L, Hgb 9.8 L, Hct 30.7 L, MCV 94.5 H D, MCH 30.2, MCHC 31.9 L, RDW Std Deviation 60.9 H, RDW Coeff of [place] 20.2 H, Plt Count 84 L, MPV 12.0, Immature Gran % (Auto) 2.500 H, Neut % (Auto) 62.4, Lymph % (Auto) 9.6 L, [place] % (Auto) 24.9 H, Eos % (Auto) 0.3, Baso % (Auto) 0.3, Absolute Neuts (auto) 4.8, Absolute Lymphs (auto) 0.74 L, Nucleated RBC % 12.3 H , Platelet Estimate MOD DEC, Polychromasia 1+, Anisocytosis 2+, Macrocytosis RARE, Jarred Cells RARE 03/18/22 03:46: PT 22.8 H, INR 2.1, APTT 38.3 H 03/18/22 03:46: Sodium 135 L, Potassium 4.4, Chloride 101, Carbon Dioxide 29.0, Anion Gap 5, BUN 16, Creatinine 0.67 L, Estim Creat Clear Calc 114.85, Est GFR (MDRD) Af Amer 156, Est GFR (MDRD) Non-Af 129, BUN/Creatinine Ratio 23.9 H, Glucose 124 H, Calcium 7.5 L, Total Bilirubin 7.60 H, Direct Bilirubin 3.73 H, AST 93 H, ALT 28, Alkaline Phosphatase 86, Total Protein 5.3 L, Albumin 1.6 L, Globulin 3.7 Micro: Microbiology 03/15/22 19:37 Mucosa - Nasopharyngeal Respiratory Panel (PCR) - Final Radiography Diagnostic Testing: Radiology Impression MRCP 03/18/22 09:00 IMPRESSION: Cholelithiasis without biliary ductal dilatation. Electronically Signed: Lionel Huitron MD at 14:57 EST , Physical Exam Narrative General: Alert, Oriented x3, Cooperative, No apparent distress HEENT: Atraumatic, PERRLA, EOMI, Normocephalic Oral: Moist Mucosa Neck: Supple, No JVD Lungs: Diminished, Normal air movement, No rhonchi, wheeze, No rales Cardiovascular: Regular rate, Regular Rhythm, Normal S1, Normal S2, No murmurs Abdomen: Soft, Non Tender, Non-Distended, No Hepato-splenomegaly Extremities: No edema, Capillary Refill Less than 3 Seconds Skin: No rashes, No breakdown Musculoskeletal: No Tenderness to Palpation of Joints or Extremities Neurological: Cranial nerves II-XII grossly intact, Motor Exam 5/5 strength throughout, Sensory exam intact to light touch and pain Psych/Mental Status: Normal Affect, Appropriate Assessment & Plan Assessment/Plan (1) Cirrhosis: PLAN: Decompensated cirrhosis with mild ascites seen on CT scan, upper GI bleed, jaundice.?His ammonia should be rechecked. His ammonia is slightly elevated. Continue Xifaxan 550 mg twice a day.?Stopneomycin 1 g twice daily and azithromycin 500 mg IV x1.? This was to help sterilize the GI tract and help to prevent reabsorption of ammonia as it equilibrates throughout the night. (2) GI bleed: PLAN: CT angiography after GI bleed displays : there is a enlarged appearance of the head and uncinate process of the pancreas. On image #53 coronal views there is a visualized low attenuating mass measuring 2.2 x 2.4 x 1.9 cm. There is a visualized focus of peripheral enhancement and a small serpiginous vascular structure which may represent neovascularity. This is just medial to 2 clips each measuring 1.5 cm are present within the apparent second part of the duodenum. MRCP displays: Cholelithiasis without biliary ductal dilatation. No pancreatic mass was seen on the MRI and it was not any signs of obstruction on MRI. He will need a CA 19-9 and EUS/ERCP in the future. (3) Alcoholic hepatitis: PLAN: MADREscore is down to 32 and normally he would give steroids.? However in setting of an acute upper GI bleed steroid would be very deleterious to him at this time.? Recommend to continue Pentoxil filing and N-acetylcysteine for alcohol and hepatitis hopefully to replete his glutathione stores. Charges/Coding Visit Charges Inpatient E&M: 71210 Subs Hosp L3
[2022-03-19] VITALS (18 sets, daily range): BP systolic 117–152; BP diastolic 71–95; PULSE 76–133; RESP 13–18; TEMP 36.5–37.1; O2SAT 93–97
[2022-03-19] MEDS: Ondansetron 4 MG/2 ML Vial IV (00:48)
[2022-03-19 05:20] LABS: Absolute Lymphocyte Count 0.81 X10^3/uL (0.83-4.51); Absolute Neutrophil Count 5.3 X10^3/uL (2.0-7.7); Basophil# 0.02 X10^3/uL; Basophil% 0.2 % (0-1); Eosinophil# 0.03 X10^3/uL; Eosinophils% 0.4 % (0-5); Hemoglobin 10.3 g/dL (13.0-16.5); Lymphocyte # 0.81 X10^3/ul (0.83-4.51); Lymphocyte % 9.6 % (19-41); Mean Corp Hgb Conc 32.2 g/dL (32-36); Mean Corpuscular Hgb 30.5 pg (27.0-32.0); Mean Corpuscular Volume 94.7 fL (80-94); Mean Platelet Vol. 11.9 fl (6.2-12.0); Monocyte# 2.14 X10^3/uL; Monocyte% 25.4 % (0-10); NRBC Flagged by Analyzer 8.4 % (0-5); Neutrophil # 5.31 X10^3/uL (2.7-7.7); Neutrophil % 62.9 % (47-70); POSITIVE COUNT YES; POSITIVE DIFFERENTIAL YES; POSITIVE MORPHOLOGY YES; Platelet Count 92 K/mm3 (150-450); RBC Distribution Width SD 62.1 fl (35.1-43.9); Red Blood Count 3.38 M/mm3 (4.6-6.2); White Blood Count 8.4 K/mm3 (4.4-11.0)
[2022-03-19 05:24] LABS: Differential Indicated SCAN CRITERIA MET
[2022-03-19 05:34] LABS: Anion Gap 6 (5-15); BUN 14 mg/dL (7-18); BUN/Creat Ratio 23.3 RATIO (10-20); Calcium,Total 7.7 mg/dL (8.5-10.1); Chloride 103 mmol/L (98-107); EST Glomerular Filtration Rate 146 mL/min (>60); Est Glom Filt Rate - Afr Amer 177 mL/min (>60); Estimated Creatinine Clearance 128.25 ml/min; Glucose 120 mg/dL (74-106); Potassium 3.6 mmol/L (3.5-5.1); Sodium Level 137 mmol/L (136-145)
[2022-03-19 05:36] LABS: Anisocytosis 1+; Differential Comment SCANNED; Macrocytosis 1+; Platelet Estimate SLT DEC (ADEQ); Polychromasia RARE
[2022-03-19] MEDS: Pentoxifylline 400 MG Tablet PO (09:07)
[2022-03-19] MEDS: Thiamine Hydrochloride 100 MG Tablet PO (09:07)
[2022-03-19] MEDS: Folic Acid 1 MG Tablet PO (09:08)
[2022-03-19] MEDS: Ferrous Sulfate 325 MG Tablet PO (09:08)
[2022-03-19] MEDS: Spironolactone 25 MG Tablet PO ×2 (09:10→21:22)
--- NOTE | 2022-03-19 09:11 | PN.HOSP_ITS ---
Subjective Subjective Doing well, feeling better. No issues overnight. MRCP was unremarkable plan for ERCP today Objective Data Objective Data Vital Signs: Vital Signs Temp Pulse Resp BP Pulse Ox O2 Del Method O2 Flow Rate 97.8 F 76 14 144/83 H 97 Room Air 2 03/19/22 08:00 03/19/22 08:00 03/19/22 08:00 03/19/22 08:00 03/19/22 08:00 03/19/22 08:00 03/17/22 05:00 Oxygen Flow Rate (L/min) 2 Oxygen Delivery Method Room Air Weight: 190 lb 14.725 oz Body Mass Index (BMI) 28.6 Intake & Output: Intake and Output for Last 24 Hours 03/18/22 03/19/22 03/20/22 03:59 03:59 03:59 Intake Total 4062.14 / 4062.14 245.50 / 245.50 Output Total 3650 / 3650 625 / 625 75 / 75 Balance 412.14 / 412.14 -379.50 / -379.50 -75 / -75 Lab / Micro Data Result Diagrams: 03/19/22 05:10 03/19/22 05:10 Labs: Laboratory Results - last 24 hr 03/15/22 12:30: Diff Path Review Reviewed 03/16/22 03:00: Diff Path Review Reviewed 03/19/22 05:10: WBC 8.4, RBC 3.38 L, Hgb 10.3 L, Hct 32.0 L, MCV 94.7 H, MCH 30.5, MCHC 32.2, RDW Std Deviation 62.1 H, RDW Coeff of [place] 20.0 H, Plt Count 92 L, MPV 11.9, Immature Gran % (Auto) 1.500 H, Neut % (Auto) 62.9, Lymph % (Auto) 9.6 L, [place] % (Auto) 25.4 H, Eos % (Auto) 0.4, Baso % (Auto) 0.2, Absolute Neuts (auto) 5.3, Absolute Lymphs (auto) 0.81 L, Nucleated RBC % 8.4 H, Differential Comment SCANNED, Platelet Estimate SLT DEC, Polychromasia RARE, Anisocytosis 1+, Macrocytosis 1+ 03/19/22 05:10: Sodium 137, Potassium 3.6, Chloride 103, Carbon Dioxide 28.0, Anion Gap 6, BUN 14, Creatinine 0.60 L, Estim Creat Clear Calc 128.25, Est GFR (MDRD) Af Amer 177, Est GFR (MDRD) Non-Af 146, BUN/Creatinine Ratio 23.3 H, Glucose 120 H, Calcium 7.7 L Micro: Microbiology 03/15/22 19:37 Mucosa - Nasopharyngeal Respiratory Panel (PCR) - Final Radiography Diagnostic Testing: Radiology Impression MRCP 03/18/22 09:00 IMPRESSION: Cholelithiasis without biliary ductal dilatation. Electronically Signed: Lionel Huitron MD at 14:57 EST , Physical Exam Narrative General: Alert, Oriented x3, Cooperative, No apparent distress HEENT: Atraumatic, PERRLA, EOMI, Normocephalic Oral: Moist Mucosa Neck: Supple, No JVD Lungs: Diminished, Normal air movement, No rhonchi, wheeze, No rales Cardiovascular: Regular rate, Regular Rhythm, Normal S1, Normal S2, No murmurs Abdomen: Soft, Non Tender, Non-Distended, No Hepato-splenomegaly Extremities: No edema, Capillary Refill Less than 3 Seconds Skin: No rashes, No breakdown Musculoskeletal: No Tenderness to Palpation of Joints or Extremities Neurological: Cranial nerves II-XII grossly intact, Motor Exam 5/5 strength throughout, Sensory exam intact to light touch and pain Psych/Mental Status: Normal Affect, Appropriate Assessment & Plan Assessment/Plan (1) GI bleed: PLAN: Plan 1. Anemia secondary to acute GI bleeding from gastritis and angiodysplasias of the duodenum ? We will transfuse as necessary ? Continue with PPI and and pentoxifylline ? Appreciate gastroenterology's assistance ?MRCP was unremarkable other than some cholelithiasis, plan for ERCP today 2. Alcoholic cirrhosis with alcoholic hepatitis/jaundice ? We will continue with CIWA protocol and Ativan is available for withdrawal symptom 3. HTN ?Blood pressures are stable ? Hemoglobin is stabilized so can resume his Aldactone and his Lasix DVT: SCDs Charges/Coding Visit Charges Inpatient E&M: 37304 Subs Hosp L2
[2022-03-19] MEDS: Furosemide 40 MG Tablet PO (10:29)
--- NOTE | 2022-03-19 16:15 | FLU_PTH ---
PATIENT: LUIS AN LOC: [facility] U#:[id number] AGE/SX: 61/M ROOM: [facility] RE03/15/[address]: Dr. Rik Diaz MD : 1960 BED: 1 DIS: 03/24/2022 SPEC #: [id number] RECD: 03/19/22 19:40 STATUS: ALDO JIMENEZ #: [id number] CHRISTIANA: 03/19/22 16:[address]: Kevin Burnette DEPT: CYTOLOGY RECD BY: Mari Morin ENTERED: 03/20/22 07:33 SP TYPE: Fluid OTHR DR: MD Dr. Deshawn Garcia DO Dr. Mark Tereletsky, MD Dr. Moe Antunez Dr., MD Tissues: A - Biliary tract, NOS B - Biliary tract, NOS Procedures: Special Stain Group II Surgery Specimen Level IV Cytospin Fluid HEADER OPERATION: ERCP with Spyglass biopsy, brushings and stent placement PRE-OP DIAGNOSIS: Pancreatic head mass, jaundice TISSUE SUBMITTED: A ? Biliary brushing tip, B ? Biliary stricture brushings DIAGNOSIS CYTOLOGY A. Biliary brushing tip (cytospin and cell block): Negative for malignant cells. B. Biliary stricture brushings (smears): Negative for malignant cells. SARI:maria victoria 03/21/2022 COMMENT Please make reference to corresponding surgical specimen ([id number]) biliary stricture biopsy from [facility] with diagnosis of ?negative for malignancy.? CYTOLOGY STUDY Slides are reviewed. CYTOLOGY GROSS A - Received is 3 ml of brownish cloudy fluid labeled with the patient's name and and designated per the requisition as biliary brushing tip. Submitted for cytology preparation including cell block. B - Received are three smears labeled with the patient's name and designated per the requisition as biliary stricture brushings. Submitted for staining. / maria victoria 03/20/2022 TC:5 CPT: 00636, 55092, 18916
--- NOTE | 2022-03-19 16:15 | TISS_PTH ---
PATIENT: LUIS AN LOC: [facility] U#:[id number] AGE/SX: 61/M ROOM: [facility] RE03/15/[address]: Dr. Rik Diaz MD : 1960 BED: 1 DIS: 03/24/2022 SPEC #: [id number] RECD: 03/19/22 19:40 STATUS: ALDO JIMENEZ #: [id number] CHRISTIANA: 03/19/22 16:[address]: Kevin Burnette DEPT: SURGICAL PATHOLOGY RECD BY: Mari Morin ENTERED: 03/20/22 07:46 SP TYPE: Tissue Bx OTHR DR: MD Dr. Deshawn Garcia, DO Dr. Riley Álvarez, MD Dr. Moe Antunez Dr., MD Tissues: Biliary tract, NOS Procedures: Surgery Specimen Level IV Comments: @ Ordering doctor for SUIV edited from to @ by MERCEDES at 03/20/22 1412 @ Submitting doctor edited from to @ by RGOOD at 03/20/22 1412 HEADER OPERATION: ERCP with Spyglass, biopsy, brushings and stent placement PRE-OP DIAGNOSIS: Pancreatic head mass, jaundice TISSUE SUBMITTED: Biopsy biliary stricture from Spyglass MICROSCOPIC DIAGNOSIS Biliary stricture biopsy from [facility]: Negative for malignancy. See comment. Jazz 03/21/2022 COMMENT Correlation with clinical, radiologic findings and appropriate follow up are necessary. Case has been reviewed in consultation with Dr. Watson who concurs with the above diagnosis. IDC:AM MICROSCOPIC DESCRIPTION Slides are reviewed. GROSS DESCRIPTION Received in fixative is one container labeled with the patient's name and designated biopsy biliary stricture from [facility]. The specimen consists of two minute fragments of light rooney soft tissue that in aggregate measure 0.2 x 0.1 x 0.1 cm. The specimen is totally submitted in one cassette. / SARI:maria victoria 03/20/2022 TC:5 CPT: 38967
[2022-03-19] MEDS: Lactated Ringers 1,000 ML 15 ML IV ×2 (17:30→19:30)
--- NOTE | 2022-03-19 18:00 | RAD_ITS ---
CLINICAL HISTORY: Fluoroscopic guided ERCP and stent insertion COMPARISON: None. TECHNIQUE: 12 image(s) of right upper quadrant were obtained during the study to document findings. FINDINGS: Fluoroscopic guided ERCP and stent insertion were performed in usual fashion. For more complete information recommend correlation with telecom analyst procedural notes RAD/ERCP Biliary/Pancreas IMPRESSION: Fluoroscopic guided ERCP and bile duct stent placement. Electronically Signed: Jose Delgado MD at 21:28 EST ,
--- NOTE | 2022-03-19 18:17 | NURSING ---
patient in endo for ERCP. unable to assess or chart on patient at this time.
--- NOTE | 2022-03-19 19:33 | OP.ERCP_ITS ---
Patient Name: Dakotah La Procedure Date: 03/19/2022 5:35 PM Date of : 1960 Age: 61 Procedure: ERCP Indications: Jaundice, Elevated liver enzymes, Acute pancreatitis Providers: Kevin Burnette DO Medicines: General Anesthesia Patient Profile: This is a 61 year old male. Refer to note in patient chart for documentation of history and physical. Patient has symptoms of acute jaundice. Complications: No immediate complications. Procedure: Pre-Anesthesia Assessment: - Prior to the procedure, a History and Physical was performed, and patient medications and allergies were reviewed. The patient is competent. The risks and benefits of the procedure and the sedation options and risks were discussed with the patient. All questions were answered and informed consent was obtained. Patient identification and proposed procedure were verified by the physician in the pre-procedure area. Mental Status Examination: alert and oriented. Airway Examination: normal oropharyngeal airway and neck mobility. Respiratory Examination: clear to auscultation. CV Examination: normal. Prophylactic Antibiotics: The patient does not require prophylactic antibiotics. Prior Anticoagulants: The patient has taken no previous anticoagulant or antiplatelet agents. ASA Grade Assessment: I - A normal, healthy patient. After reviewing the risks and benefits, the patient was deemed in satisfactory condition to undergo the procedure. The anesthesia plan was to use general anesthesia. Immediately prior to administration of medications, the patient was re-assessed for adequacy to receive sedatives. The heart rate, respiratory rate, oxygen saturations, blood pressure, adequacy of pulmonary ventilation, and response to care were monitored throughout the procedure. The physical status of the patient was re-assessed after the procedure. After obtaining informed consent, the scope was passed under direct vision. Throughout the procedure, the patient's blood pressure, pulse, and oxygen saturations were monitored continuously. The Duodenoscope was introduced through the mouth, and advanced to the duodenum and used for direct visualization of the bile duct. The ERCP was accomplished without difficulty. The patient tolerated the procedure well. Scope In: 6:11:33 PM Scope Out: 7:20:58 PM Total Procedure Duration Time 1 hour 9 minutes 25 seconds Findings: The pan devulcanizer film was normal. The esophagus was successfully intubated under direct vision. The scope was advanced to a normal major papilla in the descending duodenum without detailed examination of the pharynx, larynx and associated structures, and upper GI tract. The upper GI tract was grossly normal. The bile duct was deeply cannulated with the short-nosed traction sphincterotome. Contrast was injected. The entire opacified area was moderately dilated, secondary to a stricture. The largest diameter was 8 mm. A straight Roadrunner wire was passed into the biliary tree. A 5 mm biliary sphincterotomy was made with a traction (standard) sphincterotome using ERBE electrocautery. The sphincterotomy oozed blood. The biliary tree was swept with a 15 mm balloon starting at the bifurcation. Sludge was swept from the duct. All stones were removed. Dilation of the common bile duct with a 6-7-8 mm balloon (to a maximum balloon size of 8 mm) dilator was successful. The bile duct was explored endoscopically using the [employer] direct visualization system. The SpyScope was advanced to the upper third of the main bile duct. Visibility with the scope was excellent. The main bile duct was normal. The lower third of the main bile duct contained a single segmental stenosis 2 mm in length. The upper third of the main bile duct was normal. The lower third of the main bile duct was biopsied with a cold forceps for histology. Cells for cytology were obtained by brushing in the lower third of the main bile duct. A standard esophagogastroduodenoscopy scope was used for the examination of the upper gastrointestinal tract. The scope was passed under direct vision through the upper GI tract. Two 5 mm angiodysplastic lesions with bleeding were found in the second portion of the duodenum. Coagulation for hemostasis in the second portion of the duodenum using argon plasma at 0.9 liters/minute and 20 tan through the ERCP scope was successful. One 10 mm by 6 cm covered metal stent was placed 5 cm into the common bile duct. Bile flowed through the stent. The stent was in good position. Impression: - Two bleeding angiodysplastic lesions in the duodenum. - Hemostasis in the second portion of the duodenum with argon plasma coagulation (APC) was performed. - A single segmental biliary stricture was found in the lower third of the main bile duct. The stricture was indeterminate. - The biliary system was moderately dilated, secondary to a stricture. - Choledocholithiasis was found. Complete removal was accomplished by biliary sphincterotomy and balloon extraction. - A biliary sphincterotomy was performed. - The biliary tree was swept. - Common bile duct was successfully dilated. - Biopsy was performed in the lower third of the main duct. - Cells for cytology obtained in the lower third of the main duct. - One covered metal stent was placed into the common bile duct. Procedure Code(s): --- Professional --- 92699, Endoscopic retrograde cholangiopancreatography (ERCP); with placement of endoscopic stent into biliary or pancreatic duct, including pre- and post-dilation and guide wire passage, when performed, including sphincterotomy, when performed, each stent 33595, 51, Endoscopic retrograde cholangiopancreatography (ERCP); with removal of calculi/debris from biliary/pancreatic duct(s) 22116, 59, Endoscopic retrograde cholangiopancreatography (ERCP); with biopsy, single or multiple 30150, Endoscopic cannulation of papilla with direct visualization of pancreatic/common bile duct(s) (List separately in addition to code(s) for primary procedure) 80456, Unlisted procedure, biliary tract CPT copyright 2017 [employer]. All rights reserved. The codes documented in this report are preliminary and upon class a regional drivers review may be revised to meet current compliance requirements. Kevin Burnette DO 03/19/2022 7:33:29 PM This report has been signed electronically. Number of Addenda: 0 Note Initiated On: 03/19/2022 5:35 PM
--- NOTE | 2022-03-19 19:34 | OP.CCLET_ITS ---
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 Schuler This procedure was performed on Saturday, March 19, 2022. My impressions and recommendations are as follows: Impressions : - Two bleeding angiodysplastic lesions in the duodenum. - Hemostasis in the second portion of the duodenum with argon plasma coagulation (APC) was performed. - A single segmental biliary stricture was found in the lower third of the main bile duct. The stricture was indeterminate. - The biliary system was moderately dilated, secondary to a stricture. - Choledocholithiasis was found. Complete removal was accomplished by biliary sphincterotomy and balloon extraction. - A biliary sphincterotomy was performed. - The biliary tree was swept. - Common bile duct was successfully dilated. - Biopsy was performed in the lower third of the main duct. - Cells for cytology obtained in the lower third of the main duct. - One covered metal stent was placed into the common bile duct. Recommendations : My findings are described in the full procedure note, which is enclosed. If I can be of further assistance, please feel free to contact me at . Sincerely, Kevin Burnette, 03/19/2022 7:33:29 PM This report has been signed electronically.
[2022-03-19] MEDS: 0.9% Normal Saline 1,000 ML 200 ML IV (20:36)
[2022-03-19] MEDS: 0.9% Saline Lock 10 ML Syringe IV (21:22)
[2022-03-19] MEDS: Morphine 4 MG/ML Syringe IV (21:27)
[2022-03-20] VITALS (10 sets, daily range): BP systolic 119–145; BP diastolic 66–79; PULSE 86–111; RESP 15–18; TEMP 36.6–37.3; O2SAT 93–102
[2022-03-20] MEDS: 0.9% Normal Saline 1,000 ML 200 ML IV (01:37)
[2022-03-20 05:18] LABS: Absolute Lymphocyte Count 0.35 X10^3/uL (0.83-4.51); Absolute Neutrophil Count 11.8 X10^3/uL (2.0-7.7); Basophil# 0.03 X10^3/uL; Basophil% 0.2 % (0-1); Hemoglobin 10.3 g/dL (13.0-16.5); Lymphocyte # 0.35 X10^3/ul (0.83-4.51); Lymphocyte % 2.7 % (19-41); Mean Corp Hgb Conc 32.2 g/dL (32-36); Mean Corpuscular Hgb 31.1 pg (27.0-32.0); Mean Corpuscular Volume 96.7 fL (80-94); Mean Platelet Vol. 11.4 fl (6.2-12.0); Monocyte# 0.83 X10^3/uL; Monocyte% 6.3 % (0-10); NRBC Flagged by Analyzer 2.6 % (0-5); Neutrophil # 11.76 X10^3/uL (2.7-7.7); Neutrophil % 89.9 % (47-70); POSITIVE DIFFERENTIAL YES; POSITIVE MORPHOLOGY YES; Platelet Count 113 K/mm3 (150-450); RBC Distribution Width CV 20.1 % (11.6-14.6); RBC Distribution Width SD 65.1 fl (35.1-43.9); Red Blood Count 3.31 M/mm3 (4.6-6.2); White Blood Count 13.1 K/mm3 (4.4-11.0)
[2022-03-20 05:20] LABS: Differential Indicated SCAN CRITERIA MET
[2022-03-20 05:40] LABS: Anion Gap 7 (5-15); BUN 15 mg/dL (7-18); BUN/Creat Ratio 19.2 RATIO (10-20); Calcium,Total 7.6 mg/dL (8.5-10.1); Chloride 103 mmol/L (98-107); Creatinine, Serum 0.78 mg/dL (0.70-1.30); EST Glomerular Filtration Rate 108 mL/min (>60); Est Glom Filt Rate - Afr Amer 130 mL/min (>60); Estimated Creatinine Clearance 98.65 ml/min; Glucose 137 mg/dL (74-106); Potassium 3.3 mmol/L (3.5-5.1); Sodium Level 136 mmol/L (136-145)
[2022-03-20 06:11] LABS: Anisocytosis 2+; Burr Cells RARE; Differential Comment SCANNED; Macrocytosis 2+; Polychromasia RARE
[2022-03-20 07:39] LABS: ALB/GLOB Ratio 0.4 RATIO (0.9-2.4); AST(SGOT) 60 U/L (15-37); Alanine Aminotransfer ALT/SGPT 30 U/L (16-61); Albumin, Serum 1.7 g/dL (3.2-5.0); Alkaline Phosphatase 106 U/L (45-117); Globulin 3.9 g/dL (2.2-4.2); Protein, Total 5.6 g/dL (6.4-8.2)
[2022-03-20 08:16] LABS: Magnesium 1.7 mg/dL (1.6-2.6); Phosphorus 3.6 mg/dL (2.5-4.9)
[2022-03-20] MEDS: Potassium Chloride Oral Tablet 20 MEQ 40 MEQ PO (08:36)
[2022-03-20] MEDS: Furosemide 40 MG Tablet PO (08:37)
[2022-03-20] MEDS: Folic Acid 1 MG Tablet PO (08:37)
[2022-03-20] MEDS: Pentoxifylline 400 MG Tablet PO ×3 (08:37→17:09)
[2022-03-20] MEDS: Ferrous Sulfate 325 MG Tablet PO (08:37)
[2022-03-20] MEDS: Thiamine Hydrochloride 100 MG Tablet PO (08:37)
[2022-03-20] MEDS: Spironolactone 25 MG Tablet PO ×2 (08:38→21:22)
--- NOTE | 2022-03-20 12:06 | PN.HOSP_ITS ---
Subjective Subjective Doing well, he does have a slight leukocytosis related to his ERCP yesterday we will continue to monitor. No issues overnight Objective Data Objective Data Vital Signs: Vital Signs Temp Pulse Resp BP Pulse Ox O2 Del Method O2 Flow Rate 98.8 F 91 15 145/79 H 94 Room Air 2 03/20/22 08:31 03/20/22 11:14 03/20/22 08:31 03/20/22 08:31 03/20/22 08:31 03/20/22 08:40 03/19/22 15:48 Oxygen Flow Rate (L/min) 2 Oxygen Delivery Method Room Air Weight: 184 lb 15.485 oz Body Mass Index (BMI) 28.6 Intake & Output: Intake and Output for Last 24 Hours 03/19/22 03/20/22 03/21/22 03:59 03:59 03:59 Intake Total 245.50 / 245.50 2216.5 / 2216.5 1463.67 / 1463.67 Output Total 625 / 625 75 / 75 200 / 200 Balance -379.50 / -379.50 2141.5 / 2141.5 1263.67 / 1263.67 Lab / Micro Data Result Diagrams: 03/20/22 04:37 03/20/22 04:37 Labs: Laboratory Results - last 24 hr 03/20/22 04:37: WBC 13.1 H, RBC 3.31 L, Hgb 10.3 L, Hct 32.0 L, MCV 96.7 H, MCH 31.1, MCHC 32.2, RDW Std Deviation 65.1 H, RDW Coeff of [place] 20.1 H, Plt Count 11 3 L, MPV 11.4, Immature Gran % (Auto) 0.900, Neut % (Auto) 89.9 H, Lymph % (Auto) 2.7 L, [place] % (Auto) 6.3, Eos % (Auto) 0.0, Baso % (Auto) 0.2, Absolute Neuts (auto) 11.8 H, Absolute Lymphs (auto) 0.35 L, Nucleated RBC % 2.6, Differential Comment SCANNED, Polychromasia RARE, Anisocytosis 2+, Macrocytosis 2+, Jarred Cells RARE 03/20/22 04:37: Sodium 136, Potassium 3.3 L, Chloride 103, Carbon Dioxide 26.0, Anion Gap 7, BUN 15, Creatinine 0.78, Estim Creat Clear Calc 98.65, Est GFR (MDRD) Af Amer 130, Est GFR (MDRD) Non-Af 108, BUN/Creatinine Ratio 19.2, Glucose 137 H, Calcium 7.6 L 03/20/22 04:37: Total Bilirubin 9.60 H, AST 60 H, ALT 30, Alkaline Phosphatase 106, Total Protein 5.6 L, Albumin 1.7 L, Globulin 3.9, Albumin/Globulin Ratio 0.4 L 03/20/22 04:37: Phosphorus 3.6, Magnesium 1.7 Micro: Microbiology 03/15/22 19:37 Mucosa - Nasopharyngeal Respiratory Panel (PCR) - Final Radiography Diagnostic Testing: Radiology Impression MRCP 03/18/22 09:00 IMPRESSION: Cholelithiasis without biliary ductal dilatation. Electronically Signed: Lionel Huitron MD at 14:57 EST , ADDENDUM: 03/20/22 0950 IMPRESSION: undefined Endo Retro Cholangiopancreatogram 03/19/22 18:00 IMPRESSION: Fluoroscopic guided ERCP and bile duct stent placement. Electronically Signed: Jose Delgado MD at 21:28 EST , Physical Exam Narrative General: Alert, Oriented x3, Cooperative, No apparent distress HEENT: Atraumatic, PERRLA, EOMI, Normocephalic Oral: Moist Mucosa Neck: Supple, No JVD Lungs: Diminished, Normal air movement, No rhonchi, wheeze, No rales Cardiovascular: Regular rate, Regular Rhythm, Normal S1, Normal S2, No murmurs Abdomen: Soft, Non Tender, Non-Distended, No Hepato-splenomegaly Extremities: No edema, Capillary Refill Less than 3 Seconds Skin: No rashes, No breakdown Musculoskeletal: No Tenderness to Palpation of Joints or Extremities Neurological: Cranial nerves II-XII grossly intact, Motor Exam 5/5 strength throughout, Sensory exam intact to light touch and pain Psych/Mental Status: Flat affect, Appropriate Assessment & Plan Assessment/Plan (1) GI bleed: PLAN: Plan 1. Anemia secondary to acute GI bleeding from gastritis and angiodysplasias of the duodenum ? We will transfuse as necessary ? Continue with PPI and and pentoxifylline ? Appreciate gastroenterology's assistance ?MRCP was unremarkable other than some cholelithiasis, ERCP demonstrated a stricture, his bile ducts were swept and he had stent placed ? We will recheck CMP in the morning to make sure that his bilirubin is trending downwards 2. Alcoholic cirrhosis with alcoholic hepatitis/jaundice ? We will continue with CIWA protocol and Ativan is available for withdrawal symptom 3. HTN ?Blood pressures are stable ? Hemoglobin is stabilized so can resume his Aldactone and his Lasix DVT: SCDs Charges/Coding Visit Charges Inpatient E&M: 02077 Subs Hosp L2
[2022-03-20] MEDS: 0.9% Saline Lock 10 ML Syringe IV (21:22)
[2022-03-21] VITALS (13 sets, daily range): BP systolic 115–137; BP diastolic 63–76; PULSE 79–118; RESP 14–18; TEMP 36.6–37.2; O2SAT 93–99
[2022-03-21] MEDS: Albuterol 2.5 MG/3 ML VIAL.NEB. INHALATION ×2 (01:09→23:33)
--- NOTE | 2022-03-21 01:11 | CPS ---
patient requested prn treatment due to sob.
[2022-03-21 06:09] LABS: Absolute Lymphocyte Count 0.74 X10^3/uL (0.83-4.51); Absolute Neutrophil Count 18.8 X10^3/uL (2.0-7.7); Basophil# 0.04 X10^3/uL; Basophil% 0.2 % (0-1); Hematocrit 30.1 % (40-54); Hemoglobin 9.5 g/dL (13.0-16.5); Lymphocyte # 0.74 X10^3/ul (0.83-4.51); Lymphocyte % 3.3 % (19-41); Mean Corp Hgb Conc 31.6 g/dL (32-36); Mean Corpuscular Hgb 30.2 pg (27.0-32.0); Mean Corpuscular Volume 95.6 fL (80-94); Mean Platelet Vol. 11.5 fl (6.2-12.0); Monocyte# 2.28 X10^3/uL; Monocyte% 10.3 % (0-10); NRBC Flagged by Analyzer 0.6 % (0-5); Neutrophil # 18.77 X10^3/uL (2.7-7.7); Neutrophil % 84.4 % (47-70); POSITIVE DIFFERENTIAL YES; Platelet Count 125 K/mm3 (150-450); RBC Distribution Width CV 19.9 % (11.6-14.6); RBC Distribution Width SD 64.8 fl (35.1-43.9); Red Blood Count 3.15 M/mm3 (4.6-6.2); White Blood Count 22.2 K/mm3 (4.4-11.0)
[2022-03-21 06:25] LABS: Differential Indicated SCAN CRITERIA MET
[2022-03-21 06:43] LABS: ALB/GLOB Ratio 0.5 RATIO (0.9-2.4); AST(SGOT) 52 U/L (15-37); Alanine Aminotransfer ALT/SGPT 29 U/L (16-61); Albumin, Serum 1.7 g/dL (3.2-5.0); Alkaline Phosphatase 109 U/L (45-117); Anion Gap 6 (5-15); BUN 18 mg/dL (7-18); Calcium,Total 7.6 mg/dL (8.5-10.1); Chloride 102 mmol/L (98-107); Creatinine, Serum 0.86 mg/dL (0.70-1.30); EST Glomerular Filtration Rate 97 mL/min (>60); Est Glom Filt Rate - Afr Amer 117 mL/min (>60); Estimated Creatinine Clearance 89.48 ml/min; Globulin 3.6 g/dL (2.2-4.2); Glucose 139 mg/dL (74-106); Potassium 3.2 mmol/L (3.5-5.1); Protein, Total 5.3 g/dL (6.4-8.2); Sodium Level 135 mmol/L (136-145)
[2022-03-21 06:48] LABS: Differential Comment SCANNED
--- NOTE | 2022-03-21 07:07 | RAD_ITS ---
EXAM: XR CHEST, 1 VIEW CLINICAL INDICATION: leukocytosis TECHNIQUE: Frontal view of the chest. This report was created using FRUCT report generation technology. COMPARISON: XR Chest dated 03/15/2022 FINDINGS: LUNGS AND PLEURAL SPACES: Interval development of left lower lobe opacity which may represent pneumonia and/or atelectasis. Thickening of the right major fissure consistent with minimal pleural fluid or subpleural edema. No pneumothorax. HEART: Normal heart size. MEDIASTINUM: No mediastinal or hilar mass. BONES/JOINTS: Chronic appearing left-sided rib fractures again seen. SOFT TISSUES: See above. RAD/Chest 1 View (Portable) IMPRESSION: Left lower lobe pneumonia/atelectasis. Electronically Signed: Jesus Briceño MD at 7:47 EST ,
--- NOTE | 2022-03-21 07:08 | CT_ITS ---
EXAM: CT ABDOMEN AND PELVIS WITH INTRAVENOUS CONTRAST CLINICAL INDICATION: leukocytosis TECHNIQUE: Helically acquired images were obtained of the abdomen and pelvis with intravenous contrast. This CT exam was performed using one or more of the following dose reduction techniques: automated exposure control, adjustment of the mA and/or kV according to patient size, and/or use of iterative reconstruction technique. This report was created using [employer] report generation technology. CONTRAST: IV 100mL [id number] COMPARISON: CT Abdomen Pelvis dated 03/16/2022 and 03/15/2022 FINDINGS: LOWER THORAX: Increasing bilateral pleural effusions and compression atelectasis of the lower lobes. ABDOMEN: LIVER: Nodular contour of the liver again noted related to underlying cirrhosis. GALLBLADDER AND BILE DUCTS: Interval placement of an endobiliary stent. Contrast within the gallbladder obscures the previously noted stones. Gallbladder contrast and pneumobilia related to recent instrumentation. No gallbladder distention or wall edema. No intra- or extrahepatic biliary ductal dilation. PANCREAS: Ill-defined 3.2 cm mass within the head of the pancreas is again seen portion of which appears to be cystic or necrotic. SPLEEN: Splenule is again noted within the left upper quadrant. ADRENALS: Normal. No nodules. KIDNEYS AND URETERS: Normal. Normal renal size and position. No hydronephrosis. STOMACH AND BOWEL: No change in the appearance of the periumbilical hernia which contains multiple loops of small bowel. There is diffuse wall thickening of the large bowel and rectum which may represent hepatic colopathy/colitis. Diverticulosis of the colon noted without evidence of acute diverticulitis. PELVIS: APPENDIX: No evidence of acute appendicitis. BLADDER: Small amount of air noted within the urinary bladder likely related to recent instrumentation. REPRODUCTIVE: Unremarkable as visualized. No mass. ABDOMEN and PELVIS: INTRAPERITONEAL SPACE: Moderate volume ascites which has increased in size from prior exam. No free air. BONES/JOINTS: Normal. No suspicious lytic or blastic abnormality. SOFT TISSUES: Diffuse soft tissue edema suggesting anasarca. Fat-containing left inguinal hernia noted. VASCULATURE: Normal. Abdominal aorta is non-dilated. LYMPH NODES: Normal. No enlarged lymph nodes. CT/Abdomen/Pelvis W IV Cont ONLY IMPRESSION: 1. Increasing size of the bilateral pleural effusions and moderate volume ascites. 2. Interval placement of an endobiliary stent. 3. Pancreatic head mass. 4. Liver cirrhosis and portal hypertension. 5. Persistent diffuse wall thickening of the large bowel and rectum which may be secondary to underlying liver disease or inflammatory or infectious proctocolitis. Electronically Signed: Jesus Briceño MD at 8:32 EST ,
--- NOTE | 2022-03-21 07:33 | NURSING ---
vitals charted on [facility] 03/21 error (wrong pt).
[2022-03-21] MEDS: Furosemide 40 MG Tablet PO (09:53)
[2022-03-21] MEDS: Thiamine Hydrochloride 100 MG Tablet PO (09:53)
[2022-03-21] MEDS: Folic Acid 1 MG Tablet PO (09:53)
[2022-03-21] MEDS: Pentoxifylline 400 MG Tablet PO ×3 (09:53→17:59)
[2022-03-21] MEDS: Ferrous Sulfate 325 MG Tablet PO (09:54)
[2022-03-21] MEDS: Spironolactone 25 MG Tablet PO ×2 (09:54→22:02)
[2022-03-21] MEDS: Potassium Chloride Oral Tablet 20 MEQ 60 MEQ PO (09:56)
--- NOTE | 2022-03-21 11:13 | PN.HOSP_ITS ---
Subjective Subjective Doing well, was having some diarrhea overnight as well as some abdominal cramping and his white count did go up so C. difficile test came back positive Objective Data Objective Data Vital Signs: Vital Signs Temp Pulse Resp BP Pulse Ox O2 Del Method O2 Flow Rate 98.2 F 94 14 120/63 94 Room Air 2 03/21/22 09:48 03/21/22 09:48 03/21/22 09:48 03/21/22 09:48 03/21/22 09:48 03/21/22 09:48 03/19/22 15:48 Oxygen Flow Rate (L/min) 2 Oxygen Delivery Method Room Air Weight: 186 lb 11.704 oz Body Mass Index (BMI) 28.6 Intake & Output: Intake and Output for Last 24 Hours 03/20/22 03/21/22 03/22/22 03:59 03:59 03:59 Intake Total 2216.5 / 2216.5 2004.00 / 2004.00 74.83 / 74.83 Output Total 75 / 75 900 / 900 250 / 250 Balance 2141.5 / 2141.5 1104.00 / 1104.00 -175.17 / -175.17 Lab / Micro Data Result Diagrams: 03/21/22 05:42 03/21/22 05:42 Labs: Laboratory Results - last 24 hr 03/16/22 12:30: Crossmatch See Detail 03/21/22 05:42: WBC 22.2 H, RBC 3.15 L, Hgb 9.5 L, Hct 30.1 L, MCV 95.6 H, MCH 30.2, MCHC 31.6 L, RDW Std Deviation 64.8 H, RDW Coeff of [place] 19.9 H, Plt Count 125 L, MPV 11.5, Immature Gran % (Auto) 1.800 H, Neut % (Auto) 84.4 H, Lymph % (Auto) 3.3 L, [place] % (Auto) 10.3 H, Eos % (Auto) 0.0, Baso % (Auto) 0.2, Absolute Neuts (auto) 18.8 H, Absolute Lymphs (auto) 0.74 L, Nucleated RBC % 0.6, Differential Comment SCANNED, Diff Path Review August03/21/22 05:42: Sodium 135 L, Potassium 3.2 L, Chloride 102, Carbon Dioxide 27.0, Anion Gap 6, BUN 18, Creatinine 0.86, Estim Creat Clear Calc 89.48, Est GFR (MDRD) Af Amer 117, Est GFR (MDRD) Non-Af 97, BUN/Creatinine Ratio 21.0 H, Glucose 139 H, Calcium 7.6 L, Total Bilirubin 9.00 H, AST 52 H, ALT 29, Alkaline Phosphatase 109, Total Protein 5.3 L, Albumin 1.7 L, Globulin 3.6, Albumin/Globulin Ratio 0.5 L Micro: Microbiology 03/21/22 03:20 Stool C. difficile DNA Amplification - Final 03/15/22 19:37 Mucosa - Nasopharyngeal Respiratory Panel (PCR) - Final Radiography Diagnostic Testing: Radiology Impression Endo Retro Cholangiopancreatogram 03/19/22 18:00 IMPRESSION: Fluoroscopic guided ERCP and bile duct stent placement. Electronically Signed: Jose Delgado MD at 21:28 EST , Chest X-Ray 03/21/22 07:07 IMPRESSION: Left lower lobe pneumonia/atelectasis. Electronically Signed: Jesus Briceño MD at 7:47 EST , Abdomen/Pelvis CT 03/21/22 07:08 IMPRESSION: 1. Increasing size of the bilateral pleural effusions and moderate volume ascites. 2. Interval placement of an endobiliary stent. 3. Pancreatic head mass. 4. Liver cirrhosis and portal hypertension. 5. Persistent diffuse wall thickening of the large bowel and rectum which may be secondary to underlying liver disease or inflammatory or infectious proctocolitis. Electronically Signed: Jesus Briceño MD at 8:32 EST , Physical Exam Narrative General: Alert, Oriented x3, Cooperative, No apparent distress HEENT: Atraumatic, PERRLA, EOMI, Normocephalic Oral: Moist Mucosa Neck: Supple, No JVD Lungs: Diminished, Normal air movement, No rhonchi, wheeze, No rales Cardiovascular: Regular rate, Regular Rhythm, Normal S1, Normal S2, No murmurs Abdomen: Soft, minimally tender, Non-Distended, No Hepato-splenomegaly Extremities: No edema, Capillary Refill Less than 3 Seconds Skin: No rashes, No breakdown Musculoskeletal: No Tenderness to Palpation of Joints or Extremities Neurological: Cranial nerves II-XII grossly intact, Motor Exam 5/5 strength throughout, Sensory exam intact to light touch and pain Psych/Mental Status: Flat affect, Appropriate Assessment & Plan Assessment/Plan (1) GI bleed: PLAN: Plan 1. Anemia secondary to acute GI bleeding from gastritis and angiodysplasias of the duodenum ? We will transfuse as necessary ? Continue with PPI and and pentoxifylline ? Appreciate gastroenterology's assistance ?MRCP was unremarkable other than some cholelithiasis, ERCP demonstrated a stricture, his bile ducts were swept and he had stent placed ? We will recheck CMP in the morning to make sure that his bilirubin is trending downwards 2. Alcoholic cirrhosis with alcoholic hepatitis/jaundice ? We will continue with CIWA protocol and Ativan is available for withdrawal symptom 3. C. difficile colitis ? White count up to 22.2, C. difficile test came back positive ? CT scan with thickened rectum and distal colon ? Blood cultures are pending 4. HTN ?Blood pressures are stable ? Hemoglobin is stabilized so can resume his Aldactone and his Lasix DVT: SCDs Charges/Coding Visit Charges Inpatient E&M: 93481 Subs Hosp L2
[2022-03-21] MEDS: Pantoprazole Sodium 40 MG Tablet PO ×2 (11:57→22:02)
[2022-03-21] MEDS: Vancomycin 125 MG/5 ML Susp PO.SYRINGE PO ×3 (11:58→23:40)
[2022-03-21] MEDS: Menthol/Lanolin/Calamine/Znox 113 GM Tube 1 APPLIC TOPICAL ×3 (12:35→22:02)
[2022-03-21] MEDS: Acetaminophen 325 MG Tablet 650 MG PO ×2 (12:36→18:58)
--- NOTE | 2022-03-21 17:30 | PN_ITS ---
Subjective Subjective Patient having some abdominal pain to mild shortness of breath. I ordered a chest x-ray versus pneumonia in the left greater than right lower lobe. Does not have any decrease in oxygen saturation. He denies any chest pain. I ordered a CT scan abdomen pelvis because his white count increased to 22,000.. CT scan abdomen pelvis had shown worsening ascites and a pancreatic head mass secondary to the cystic or solid lesion. Active bleeding that was seen at the level of the ampulla next to the opening to the pancreatic duct therefore it was treated with cauterization and a fully covered metal stent was placed to tamponade that area. Biopsies were taken of the distal common bile duct around the area of the pancreas. C. difficile was ordered and it came back positive. Objective Data Objective Data Vital Signs: Vital Signs Temp Pulse Resp BP Pulse Ox O2 Del Method O2 Flow Rate 98 F 118 H 15 115/69 94 Room Air 2 03/21/22 16:04 03/21/22 16:19 03/21/22 16:04 03/21/22 16:04 03/21/22 16:04 03/21/22 16:20 03/19/22 15:48 Oxygen Flow Rate (L/min) 2 Oxygen Delivery Method Room Air Weight: 186 lb 11.704 oz Body Mass Index (BMI) 28.6 Intake & Output: Intake and Output for Last 24 Hours 03/19/22 03/20/22 03/21/22 23:59 23:59 23:59 Intake Total 1275.0 / 1275.0 2907.67 / 2907.67 646.16 / 646.16 Output Total 75 / 75 900 / 900 250 / 250 Balance 1200.0 / 1200.0 2006.67 / 2006.67 396.16 / 396.16 Lab / Micro Data Result Diagrams: 03/21/22 05:42 03/21/22 05:42 Labs: Laboratory Results - last 24 hr 03/16/22 12:30: Crossmatch See Detail 03/21/22 05:42: WBC 22.2 H, RBC 3.15 L, Hgb 9.5 L, Hct 30.1 L, MCV 95.6 H, MCH 30.2, MCHC 31.6 L, RDW Std Deviation 64.8 H, RDW Coeff of [place] 19.9 H, Plt Count 125 L, MPV 11.5, Immature Gran % (Auto) 1.800 H, Neut % (Auto) 84.4 H, Lymph % (Auto) 3.3 L, [place] % (Auto) 10.3 H, Eos % (Auto) 0.0, Baso % (Auto) 0.2, A bsolute Neuts (auto) 18.8 H, Absolute Lymphs (auto) 0.74 L, Nucleated RBC % 0.6, Differential Comment SCANNED, Diff Path Review August03/21/22 05:42: Sodium 135 L, Potassium 3.2 L, Chloride 102, Carbon Dioxide 27.0, Anion Gap 6, BUN 18, Creatinine 0.86, Estim Creat Clear Calc 89.48, Est GFR (MDRD) Af Amer 117, Est GFR (MDRD) Non-Af 97, BUN/Creatinine Ratio 21.0 H, Glucose 139 H, Calcium 7.6 L, Total Bilirubin 9.00 H, AST 52 H, ALT 29, Alkaline Phosphatase 109, Total Protein 5.3 L, Albumin 1.7 L, Globulin 3.6, Albumi n/Globulin Ratio 0.5 L Micro: Microbiology 03/21/22 03:20 Stool C. difficile GDH Antigen & Toxins - Final Toxigenic C. difficile 03/21/22 03:20 Stool C. difficile DNA Amplification - Final 03/15/22 19:37 Mucosa - Nasopharyngeal Respiratory Panel (PCR) - Final Radiography Diagnostic Testing: Radiology Impression Endo Retro Cholangiopancreatogram 03/19/22 18:00 IMPRESSION: Fluoroscopic guided ERCP and bile duct stent placement. Electronically Signed: Jose Delgado MD at 21:28 EST , Chest X-Ray 03/21/22 07:07 IMPRESSION: Left lower lobe pneumonia/atelectasis. Electronically Signed: Jesus Briceño MD at 7:47 EST , Abdomen/Pelvis CT 03/21/22 07:08 IMPRESSION: 1. Increasing size of the bilateral pleural effusions and moderate volume ascites. 2. Interval placement of an endobiliary stent. 3. Pancreatic head mass. 4. Liver cirrhosis and portal hypertension. 5. Persistent diffuse wall thickening of the large bowel and rectum which may be secondary to underlying liver disease or inflammatory or infectious proctocolitis. Electronically Signed: Jesus Briceño MD at 8:32 EST Reading Location ID and State: [facility] [place] / [place] Tel , Service support , Physical Exam Narrative General: Alert, Oriented x3, Cooperative, No apparent distress HEENT: Atraumatic, PERRLA, EOMI, Normocephalic Oral: Moist Mucosa Neck: Supple, No JVD Lungs: Diminished, Normal air movement, No rhonchi, wheeze, No rales Cardiovascular: Regular rate, Regular Rhythm, Normal S1, Normal S2, No murmurs Abdomen: Soft, minimally tender, Non-Distended, No Hepato-splenomegaly Extremities: No edema, Capillary Refill Less than 3 Seconds Skin: No rashes, No breakdown Musculoskeletal: No Tenderness to Palpation of Joints or Extremities Neurological: Cranial nerves II-XII grossly intact, Motor Exam 5/5 strength throughout, Sensory exam intact to light touch and pain Psych/Mental Status: Flat affect, Appropriate Assessment & Plan Assessment/Plan (1) Cirrhosis: PLAN: Meld of 20 with a child [place] class B. 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 Recommend aggressive diuresis. I would not recommend a diagnostic or therapeutic paracentesis due to an acute colitis secondary to C. difficile colitis (2) GI bleed: PLAN: . GI bleed at the level of ampulla associated with hemobilia and possibly from pancreatic head mass. Recommend to check a CA 19-9. (3) Alcoholic hepatitis: PLAN: He is not showing any signs at this time. His score is 26. No indication for steroids at this time as infection. (4) Pancreatic mass: PLAN: Await biopsies and check a CA 19-9 (5) C. difficile colitis: PLAN: Recommend vancomycin 125 mg every 6 hours for 14 days. Charges/Coding Visit Charges Inpatient E&M: 14014 [facility] Hosp L3
[2022-03-22] VITALS (9 sets, daily range): BP systolic 119–148; BP diastolic 65–89; PULSE 89–104; RESP 15–17; TEMP 36.9–37.2; O2SAT 92–95
[2022-03-22] MEDS: Vancomycin 125 MG/5 ML Susp PO.SYRINGE PO ×4 (05:44→23:24)
[2022-03-22 07:11] LABS: Absolute Lymphocyte Count 1.26 X10^3/uL (0.83-4.51); Basophil# 0.03 X10^3/uL; Basophil% 0.1 % (0-1); Eosinophil# 0.04 X10^3/uL; Eosinophils% 0.2 % (0-5); Hematocrit 29.7 % (40-54); Hemoglobin 9.5 g/dL (13.0-16.5); Lymphocyte # 1.26 X10^3/ul (0.83-4.51); Lymphocyte % 5.8 % (19-41); Mean Corpuscular Hgb 30.8 pg (27.0-32.0); Mean Corpuscular Volume 96.4 fL (80-94); Mean Platelet Vol. 11.4 fl (6.2-12.0); Monocyte# 1.94 X10^3/uL; NRBC Flagged by Analyzer 0.3 % (0-5); Neutrophil # 18.02 X10^3/uL (2.7-7.7); Neutrophil % 83.6 % (47-70); POSITIVE DIFFERENTIAL YES; Platelet Count 157 K/mm3 (150-450); RBC Distribution Width CV 19.3 % (11.6-14.6); RBC Distribution Width SD 64.7 fl (35.1-43.9); Red Blood Count 3.08 M/mm3 (4.6-6.2); White Blood Count 21.6 K/mm3 (4.4-11.0)
[2022-03-22 07:18] LABS: Differential Indicated SCAN CRITERIA MET
[2022-03-22 07:34] LABS: Anion Gap 6 (5-15); BUN 15 mg/dL (7-18); BUN/Creat Ratio 19.8 RATIO (10-20); Calcium,Total 7.7 mg/dL (8.5-10.1); Chloride 102 mmol/L (98-107); Creatinine, Serum 0.76 mg/dL (0.70-1.30); EST Glomerular Filtration Rate 112 mL/min (>60); Est Glom Filt Rate - Afr Amer 136 mL/min (>60); Estimated Creatinine Clearance 101.25 ml/min; Glucose 120 mg/dL (74-106); Potassium 3.1 mmol/L (3.5-5.1); Sodium Level 135 mmol/L (136-145)
[2022-03-22] MEDS: Menthol/Lanolin/Calamine/Znox 113 GM Tube 1 APPLIC TOPICAL ×3 (09:40→21:11)
[2022-03-22] MEDS: Pentoxifylline 400 MG Tablet PO ×3 (09:40→18:24)
[2022-03-22] MEDS: Pantoprazole Sodium 40 MG Tablet PO ×2 (09:40→21:11)
[2022-03-22] MEDS: Ferrous Sulfate 325 MG Tablet PO (09:40)
[2022-03-22] MEDS: Furosemide 40 MG Tablet PO (09:40)
[2022-03-22] MEDS: Spironolactone 25 MG Tablet PO ×2 (09:40→21:11)
[2022-03-22] MEDS: Thiamine Hydrochloride 100 MG Tablet PO (09:40)
[2022-03-22] MEDS: Folic Acid 1 MG Tablet PO (09:40)
[2022-03-22 09:48] LABS: Pathologist Review Reviewed
--- NOTE | 2022-03-22 10:15 | PN.HOSP_ITS ---
Subjective Subjective Doing well, no issues overnight, feels better. Diarrhea slowed down. Objective Data Objective Data Vital Signs: Vital Signs Temp Pulse Resp BP Pulse Ox O2 Del Method O2 Flow Rate 99 F 104 H 15 148/68 H 95 Room Air 2 03/22/22 09:53 03/22/22 09:53 03/22/22 09:53 03/22/22 09:53 03/22/22 09:53 03/22/22 09:53 03/19/22 15:48 Oxygen Flow Rate (L/min) 2 Oxygen Delivery Method Room Air Weight: 188 lb 7.924 oz Body Mass Index (BMI) 28.6 Intake & Output: Intake and Output for Last 24 Hours 03/21/22 03/22/22 03/23/22 03:59 03:59 03:59 Intake Total 2004.00 / 2004.00 1074.83 / 1074.83 Output Total 900 / 900 1300 / 1300 200 / 200 Balance 1104.00 / 1104.00 -225.17 / -225.17 -200 / -200 Lab / Micro Data Result Diagrams: 03/22/22 06:45 03/22/22 06:45 Labs: Laboratory Results - last 24 hr 03/21/22 05:42: Diff Path Review Reviewed 03/22/22 06:45: WBC 21.6 H, RBC 3.08 L, Hgb 9.5 L, Hct 29.7 L, MCV 96.4 H, MCH 30.8, MCHC 32.0, RDW Std Deviation 64.7 H, RDW Coeff of [place] 19.3 H, Plt Count 157, MPV 11.4, Immature Gran % (Auto) 1.300 H, Neut % (Auto) 83.6 H, Lymph % (Auto) 5.8 L, [place] % (Auto) 9.0, Eos % (Auto) 0.2, Baso % (Auto) 0.1, Absolute Neuts (auto) 18.0 H, Absolute Lymphs (auto) 1.26, Nucleated RBC % 0.3, D ifferential Comment COMMENT, Diff Path Review August03/22/22 06:45: Sodium 135 L, Potassium 3.1 L, Chloride 102, Carbon Dioxide 27.0, Anion Gap 6, BUN 15, Creatinine 0.76, Estim Creat Clear Calc 101.25, Est GFR (MDRD) Af Amer 136, Est GFR (MDRD) Non-Af 112, BUN/Creatinine Ratio 19.8, Glucose 120 H, Calcium 7.7 L Micro: Microbiology 03/21/22 03:20 Stool C. difficile GDH Antigen & Toxins - Final Toxigenic C. difficile 03/21/22 03:20 Stool C. difficile DNA Amplification - Final 03/15/22 19:37 Mucosa - Nasopharyngeal Respiratory Panel (PCR) - Final Radiography Diagnostic Testing: Radiology Impression Endo Retro Cholangiopancreatogram 03/19/22 18:00 IMPRESSION: Fluoroscopic guided ERCP and bile duct stent placement. Electronically Signed: Jose Delgado MD at 21:28 EST , Chest X-Ray 03/21/22 07:07 IMPRESSION: Left lower lobe pneumonia/atelectasis. Electronically Signed: Jesus Briceño MD at 7:47 EST , Abdomen/Pelvis CT 03/21/22 07:08 IMPRESSION: 1. Increasing size of the bilateral pleural effusions and moderate volume ascites. 2. Interval placement of an endobiliary stent. 3. Pancreatic head mass. 4. Liver cirrhosis and portal hypertension. 5. Persistent diffuse wall thickening of the large bowel and rectum which may be secondary to underlying liver disease or inflammatory or infectious proctocolitis. Electronically Signed: Jesus Briceño MD at 8:32 EST , Physical Exam Narrative General: Alert, Oriented x3, Cooperative, No apparent distress HEENT: Atraumatic, PERRLA, EOMI, Normocephalic Oral: Moist Mucosa Neck: Supple, No JVD Lungs: Diminished, Normal air movement, No rhonchi, wheeze, No rales Cardiovascular: Regular rate, Regular Rhythm, Normal S1, Normal S2, No murmurs Abdomen: Soft, minimally tender, Distended, No Hepato-splenomegaly Extremities: No edema, Capillary Refill Less than 3 Seconds Skin: No rashes, No breakdown Musculoskeletal: No Tenderness to Palpation of Joints or Extremities Neurological: Cranial nerves II-XII grossly intact, Motor Exam 5/5 strength throughout, Sensory exam intact to light touch and pain Psych/Mental Status: Flat affect, Appropriate Assessment & Plan Assessment/Plan (1) GI bleed: PLAN: Plan 1. Anemia secondary to acute GI bleeding from gastritis and angiodysplasias of the duodenum ? We will transfuse as necessary ? Continue with PPI and and pentoxifylline ? Appreciate gastroenterology's assistance ?MRCP was unremarkable other than some cholelithiasis, ERCP demonstrated a stricture, his bile ducts were swept and he had stent placed. CA 19-9 is pending ? We will recheck CMP in the morning to make sure that his bilirubin is trending downwards 2. Alcoholic cirrhosis with alcoholic hepatitis/jaundice ? We will continue with CIWA protocol and Ativan is available for withdrawal symptom 3. C. difficile colitis ? White count up to 22.2, C. difficile test came back positive ? CT scan with thickened rectum and distal colon ? Blood cultures are pending 4. HTN ?Blood pressures are stable ? Hemoglobin is stabilized so can resume his Aldactone and his Lasix DVT: SCDs Charges/Coding Visit Charges Inpatient E&M: 50615 Subs Hosp L2
[2022-03-22 11:03] LABS: Magnesium 1.7 mg/dL (1.6-2.6); Phosphorus 2.7 mg/dL (2.5-4.9)
[2022-03-22] MEDS: Potassium Chloride 10mEq/100mL 10 MEQ/100 ML IV.SOLN. 100 MEQ IV BOLUS ×4 (12:41→15:55)
--- NOTE | 2022-03-22 17:24 | PCM.PROGNOTE ---
Subjective Subjective he is doing alot better, but he is still having diarrhea. Objective Data Objective Data Vital Signs: Vital Signs Temp Pulse Resp BP Pulse Ox O2 Del Method O2 Flow Rate 99 F 97 16 131/89 H 95 Room Air 2 03/22/22 14:31 03/22/22 16:00 03/22/22 14:31 03/22/22 14:31 03/22/22 14:31 03/22/22 14:31 03/19/22 15:48 Oxygen Flow Rate (L/min) 2 Oxygen Delivery Method Room Air Weight: 188 lb 7.924 oz Body Mass Index (BMI) 28.6 Intake & Output: Intake and Output for Last 24 Hours 03/20/22 03/21/22 03/22/22 23:59 23:59 23:59 Intake Total 2907.67 / 2907.67 1171.16 / 1171.16 988.33 / 988.33 Output Total 900 / 900 1100 / 1300 2200 / 2200 Balance 2006.67 / 71.16 / -128.84 -1211.67 / -1211.67 Lab / Micro Data Result Diagrams: 03/22/22 06:45 03/22/22 06:45 Labs: Laboratory Results - last 24 hr 03/21/22 05:42: Diff Path Review Reviewed 03/22/22 06:45: WBC 21.6 H, RBC 3.08 L, Hgb 9.5 L, Hct 29.7 L, MCV 96.4 H, MCH 30.8, MCHC 32.0, RDW Std Deviation 64.7 H, RDW Coeff of [place] 19.3 H, Plt Count 157, MPV 11.4, Immature Gran % (Auto) 1.300 H, Neut % (Auto) 83.6 H, Lymph % (Auto) 5.8 L, [place] % (Auto) 9.0, Eos % (Auto) 0.2, Baso % (Auto) 0.1, Absolute Neuts (auto) 18.0 H, Absolute Lymphs (auto) 1.26, Nucleated RBC % 0.3, Differential Comment COMMENT, Diff Path Review August03/22/22 06:45: Sodium 135 L, Potassium 3.1 L, Chloride 102, Carbon Dioxide 27.0, Anion Gap 6, BUN 15, Creatinine 0.76, Estim Creat Clear Calc 101.25, Est GFR (MDRD) Af Amer 136, Est GFR (MDRD) Non-Af 112, BUN/Creatinine Ratio 19.8, Glucose 120 H, Calcium 7.7 L 03/22/22 06:45: Phosphorus 2.7, Magnesium 1.7 Micro: Microbiology 03/21/22 03:20 Stool C. difficile GDH Antigen & Toxins - Final Toxigenic C. difficile 03/21/22 03:20 Stool C. difficile DNA Amplification - Final 03/15/22 19:37 Mucosa - Nasopharyngeal Respiratory Panel (PCR) - Final Physical Exam Narrative General: Alert, Oriented x3, Cooperative, No apparent distress HEENT: Atraumatic, PERRLA, EOMI, Normocephalic Oral: Moist Mucosa Neck: Supple, No JVD Lungs: Diminished, Normal air movement, No rhonchi, wheeze, No rales Cardiovascular: Regular rate, Regular Rhythm, Normal S1, Normal S2, No murmurs Abdomen: Soft, minimally tender, Distended, No Hepato-splenomegaly Extremities: No edema, Capillary Refill Less than 3 Seconds Skin: No rashes, No breakdown Musculoskeletal: No Tenderness to Palpation of Joints or Extremities Neurological: Cranial nerves II-XII grossly intact, Motor Exam 5/5 strength throughout, Sensory exam intact to light touch and pain Psych/Mental Status: Flat affect, Appropriate Assessment & Plan Assessment/Plan (1) C. difficile colitis: PLAN: Recommend vancomycin 125 mg every 6 hours for 14 days. I will put him on colestipol. (2) Pancreatic mass: PLAN: Await biopsies and check a CA 19-9. Outpatient EUS. (3) Cirrhosis: PLAN: Meld of 20 with a child Landeros class B.? He is developing ascites and possibly a hepatic hydrothorax.? Recommend aggressive diuresis.? I would not recommend a diagnostic or therapeutic paracentesis due to an acute colitis secondary to C. difficile colitis . (4) GI bleed: PLAN: ? GI bleed at the level of ampulla associated with hemobilia and possibly from pancreatic head mass.? Recommend to check a CA 19-9. (5) Alcoholic hepatitis: PLAN: He is not showing any signs at this time.? His score is 26.? No indication for steroids at this time as infection. Charges/Coding Visit Charges Inpatient E&M: 63122 Subs Hosp L3
--- NOTE | 2022-03-22 17:52 | CT_ITS ---
INDICATION: Seizure vs. Stroke EXAMINATION: CT BRAIN - CT Head or Brain W/O Contrast Injection TECHNIQUE: Multiple axial images were obtained of the head without intravenous contrast. A radiation dose optimization technique was used for this scan. IV Contrast dosage and agent: None. RADIATION DOSAGE (If Supplied By Facility): CTDIvol = ( 44.99 ) mGy, DLP = ( 762.36 ) mGycm COMPARISON: No relevant prior examinations for comparison FINDINGS: HEMISPHERES: 1. The cerebral parenchyma, ventricular system, subarachnoid spaces have normal configuration and density. There is a normal gyral pattern. There is normal hall/white differentiation. No midline shift.. 2. Mild chronic microvascular deep white matter change. 3. No intraparenchymal mass, hemorrhage, or acute territorial infarct. CEREBELLUM - BRAINSTEM: The cerebellum, brainstem, basilar and suprasellar cisterns have normal appearance. No Chiari malformation. PITUITARY: Infundibulum and pituitary have normal configuration. Midline structures appear normal. CSF SPACES: Appropriate for age. No hydrocephalus. Basal cisterns are patent. VESSELS: 1. Diffuse vascular calcifications involving the cavernous carotid vessels. 2. No hyperdense vascular signs noted.. ORBITS AND PARANASAL SINUSES: 1. Normal appearance of the bony orbits. Normal appearance of the globes and retrobulbar soft tissues.. 2. Paranasal sinuses are clear. BONY ELEMENTS: Bony elements of the cranial vault, facial skeleton and skull base have normal appearance. SCALP AND SOFT TISSUES: Normal appearance of the soft tissues of the scalp and the visualized face OTHER: None ASPECTS Score for Acute Strokes: 10 CT/Brain/Head without Contrast IMPRESSION: 1. Mild chronic microvascular deep white matter change. 2. No intracranial mass, hemorrhage or acute territorial infarct. 3. No structural abnormality identified to correspond to history of seizure. 4. No radiographically significant sinus disease.. Electronically Signed: Lionel Wilson MD at 18:29 EST ,
--- NOTE | 2022-03-22 18:02 | PCM.PN.BLA ---
Progress Note Rapid response was called for patient was having tonic-clonic seizures. This lasted for few minutes. Patient had postictal confusion a few minutes after and was not responsive. Blood glucose was 113. ABG showed pH of 7.55, PCO2 was 27, PO2 was 45. Ammonia <10 CT of the head was unremarkable for acute intracranial pathology Patient has been in the hospital for about a week, doubt alcohol withdrawal seizure We will repeat CMP, magnesium, phosphorus stat Stat EEG We will start Keppra 500 mg IV twice daily
[2022-03-22 18:15] LABS: Bedside Glucose 113 mg/dL (74-106)
[2022-03-22 18:41] LABS: Allen Test Positive; Base Excess 1 mmol/L (-2 to +2); Bicarbonate 23.6 mmol/L (22-26); Blood Gas Specimen Type ART; FI02 21; O2 Delivery Device Room Air; PO2 45 mmHG (75-100); SITE R Radial; SO2 87 % (95-99); Total Carbon Dioxide 25 mmol/L; pH 7.55 (7.35-7.45)
--- NOTE | 2022-03-22 18:43 | NURSING ---
At 1743 CUSTOMER ENGAGEMENT MANAGER hit the staff assist button. Staff responded and noted possible seizure activity. Rapid response initiated. See rapid response team charting.
[2022-03-22 18:53] LABS: Ammonia < 10.0 umol/L (11-32)
[2022-03-22] MEDS: LORazepam 2 MG/ML Syringe IV (20:56)
[2022-03-22 21:09] LABS: ALB/GLOB Ratio 0.5 RATIO (0.9-2.4); AST(SGOT) 50 U/L (15-37); Alanine Aminotransfer ALT/SGPT 33 U/L (16-61); Alkaline Phosphatase 128 U/L (45-117); Anion Gap 6 (5-15); BUN 14 mg/dL (7-18); BUN/Creat Ratio 18.3 RATIO (10-20); Chloride 100 mmol/L (98-107); Creatinine, Serum 0.77 mg/dL (0.70-1.30); EST Glomerular Filtration Rate 110 mL/min (>60); Est Glom Filt Rate - Afr Amer 134 mL/min (>60); Estimated Creatinine Clearance 99.94 ml/min; Globulin 4.1 g/dL (2.2-4.2); Glucose 120 mg/dL (74-106); Magnesium 1.5 mg/dL (1.6-2.6); Potassium 3.3 mmol/L (3.5-5.1); Protein, Total 6.1 g/dL (6.4-8.2); Sodium Level 134 mmol/L (136-145)
[2022-03-22 21:48] LABS: Phosphorus 2.8 mg/dL (2.5-4.9)
[2022-03-23] VITALS (10 sets, daily range): BP systolic 127–139; BP diastolic 70–89; PULSE 89–111; RESP 16–20; TEMP 36.7–37.2; O2SAT 92–97
[2022-03-23] MEDS: Vancomycin 125 MG/5 ML Susp PO.SYRINGE PO ×4 (06:24→23:29)
[2022-03-23 07:11] LABS: Absolute Lymphocyte Count 1.36 X10^3/uL (0.83-4.51); Absolute Neutrophil Count 16.5 X10^3/uL (2.0-7.7); Basophil# 0.04 X10^3/uL; Basophil% 0.2 % (0-1); Eosinophil# 0.08 X10^3/uL; Eosinophils% 0.4 % (0-5); Hematocrit 31.5 % (40-54); Hemoglobin 10.2 g/dL (13.0-16.5); Lymphocyte # 1.36 X10^3/ul (0.83-4.51); Lymphocyte % 6.6 % (19-41); Mean Corp Hgb Conc 32.4 g/dL (32-36); Mean Corpuscular Hgb 31.6 pg (27.0-32.0); Mean Corpuscular Volume 97.5 fL (80-94); Mean Platelet Vol. 11.3 fl (6.2-12.0); Monocyte# 2.17 X10^3/uL; Monocyte% 10.6 % (0-10); NRBC Flagged by Analyzer 0.2 % (0-5); Neutrophil # 16.51 X10^3/uL (2.7-7.7); Neutrophil % 80.7 % (47-70); POSITIVE DIFFERENTIAL YES; Platelet Count 153 K/mm3 (150-450); RBC Distribution Width SD 63.5 fl (35.1-43.9); Red Blood Count 3.23 M/mm3 (4.6-6.2); White Blood Count 20.5 K/mm3 (4.4-11.0)
[2022-03-23 07:20] LABS: Differential Indicated SCAN CRITERIA MET
[2022-03-23 07:47] LABS: Hypersegmented Neutrophils 1+
[2022-03-23 07:57] LABS: ALB/GLOB Ratio 0.5 RATIO (0.9-2.4); AST(SGOT) 45 U/L (15-37); Alanine Aminotransfer ALT/SGPT 28 U/L (16-61); Albumin, Serum 1.9 g/dL (3.2-5.0); Alkaline Phosphatase 127 U/L (45-117); Anion Gap 6 (5-15); BUN 13 mg/dL (7-18); BUN/Creat Ratio 19.6 RATIO (10-20); Chloride 99 mmol/L (98-107); Creatinine, Serum 0.66 mg/dL (0.70-1.30); EST Glomerular Filtration Rate 130 mL/min (>60); Est Glom Filt Rate - Afr Amer 158 mL/min (>60); Estimated Creatinine Clearance 116.59 ml/min; Globulin 3.8 g/dL (2.2-4.2); Glucose 81 mg/dL (74-106); Magnesium 1.9 mg/dL (1.6-2.6); Potassium 3.5 mmol/L (3.5-5.1); Protein, Total 5.7 g/dL (6.4-8.2); Sodium Level 133 mmol/L (136-145)
[2022-03-23 08:09] LABS: Carbohydrate AG 19-9 163 U/mL (0-35)
[2022-03-23] MEDS: Pentoxifylline 400 MG Tablet PO ×3 (08:35→16:39)
[2022-03-23] MEDS: Colestipol 1 GM TABLET PO (08:35)
[2022-03-23] MEDS: Ferrous Sulfate 325 MG Tablet PO (08:35)
[2022-03-23] MEDS: Folic Acid 1 MG Tablet PO (08:36)
[2022-03-23] MEDS: Furosemide 40 MG Tablet PO (08:36)
[2022-03-23] MEDS: Pantoprazole Sodium 40 MG Tablet PO ×2 (08:36→21:19)
[2022-03-23] MEDS: Thiamine Hydrochloride 100 MG Tablet PO (08:36)
[2022-03-23] MEDS: Menthol/Lanolin/Calamine/Znox 113 GM Tube 1 APPLIC TOPICAL ×4 (08:36→21:24)
[2022-03-23] MEDS: Spironolactone 25 MG Tablet PO ×2 (08:36→21:19)
--- NOTE | 2022-03-23 11:17 | TELEMED_ITS ---
[facility] has confirmed receipt of a request for visit. This document confirms receipt of the order initiating the consult. To find the results of the consultation, please view the patient's reports for the scanned Telemed Consult.
--- NOTE | 2022-03-23 16:08 | PCM.PN.HOSP ---
Subjective Subjective Doing well, had his EEG this morning which was read as no seizure activity. He does remember the events from last night he is not sure what happened but he said that he felt very very cold. Objective Data Objective Data Vital Signs: Vital Signs Temp Pulse Resp BP Pulse Ox O2 Del Method O2 Flow Rate 98.3 F 94 16 128/73 H 96 Room Air 2 03/23/22 12:34 03/23/22 15:00 03/23/22 12:34 03/23/22 12:34 03/23/22 12:34 03/23/22 15:08 03/22/22 21:20 Oxygen Flow Rate (L/min) 2 Oxygen Delivery Method Room Air Weight: 191 lb 9.307 oz Body Mass Index (BMI) 28.6 Intake & Output: Intake and Output for Last 24 Hours 03/22/22 03/23/22 03/24/22 03:59 03:59 03:59 Intake Total 1074.83 / 1074.83 1093.33 / 1093.33 345 / 345 Output Total 1300 / 1300 2250 / 2250 400 / 400 Balance -225.17 / -225.17 -1156.67 / -1156.67 -55 / -55 Lab / Micro Data Result Diagrams: 03/24/22 06:30 03/24/22 06:30 Labs: Laboratory Results - last 24 hr 03/22/22 06:45: CA 19-9 Antigen 163 H 03/22/22 17:45: POC Glucose 113 H 03/22/22 18:24: Ammonia < 10.0 L 03/22/22 20:15: Sodium 134 L, Potassium 3.3 L, Chloride 100, Carbon Dioxide 28.0, Anion Gap 6, BUN 14, Creatinine 0.77, Estim Creat Clear Calc 99.94, Est GFR (MDRD) Af Amer 134, Est GFR (MDRD) Non-Af 110, BUN/Creatinine Ratio 18.3, Glucose 120 H, Calcium 8.0 L, Magnesium 1.5 L, Total Bilirubin 11.30 H, AST 50 H, ALT 33, Alkaline Phosphatase 128 H, Total Protein 6.1 L, Albumin 2.0 L, Globulin 4.1, Albumin/Globulin Ratio 0.5 L 03/22/22 20:15: Phosphorus 2.8 03/23/22 06:03: WBC 20.5 H, RBC 3.23 L, Hgb 10.2 L, Hct 31.5 L, MCV 97.5 H, MCH 31.6, MCHC 32.4, RDW Std Deviation 63.5 H, RDW Coeff of [place] 19.0 H, Plt Count 153, MPV 11.3, Immature Gran % (Auto) 1.500 H, Neut % (Auto) 80.7 H, Lymph % (Auto) 6.6 L, [place] % (Auto) 10.6 H, Eos % (Auto) 0.4, Baso % (Auto) 0.2, Absolute Neuts (auto) 16.5 H, Absolute Lymphs (auto) 1.36, Nucleated RBC % 0.2, Diff Path Review May foll, Hypersegmented Neuts 1+ H 03/23/22 06:03: Sodium 133 L, Potassium 3.5, Chloride 99, Carbon Dioxide 28.0, Anion Gap 6, BUN 13, Creatinine 0.66 L, Estim Creat Clear Calc 116.59, Est GFR (MDRD) Af Amer 158, Est GFR (MDRD) Non-Af 130, BUN/Creatinine Ratio 19.6, Glucose 81, Calcium 8.0 L, Magnesium 1.9, Total Bilirubin 10.70 H, AST 45 H, ALT 28, Alkaline Phosphatase 127 H, Total Protein 5.7 L, Albumin 1.9 L, Globulin 3.8, Albumin/Globulin Ratio 0.5 L 03/23/22 06:03: Phosphorus 3.0 Micro: Microbiology 03/21/22 03:20 Stool C. difficile GDH Antigen & Toxins - Final Toxigenic C. difficile 03/21/22 03:20 Stool C. difficile DNA Amplification - Final 03/15/22 19:37 Mucosa - Nasopharyngeal Respiratory Panel (PCR) - Final ABG Data ABG results: ABG 03/22/22 18:37 Specimen Type ART Sample Site R Radial pH 7.55 H Bicarbonate Actual 23.6 Total CO2 25 Base Excess 1 O2 Saturation 87 L O2 % 21 ABG pCO2 27.0 L ABG pO2 45 L Kike Test Positive O2 Delivery Device Room Air Radiography Diagnostic Testing: Radiology Impression Brain CT 03/22/22 17:52 IMPRESSION: 1. Mild chronic microvascular deep white matter change. 2. No intracranial mass, hemorrhage or acute territorial infarct. 3. No structural abnormality identified to correspond to history of seizure. 4. No radiographically significant sinus disease.. Electronically Signed: Lionel Wilson MD at 18:29 EST , Physical Exam Narrative General: Alert, Oriented x3, Cooperative, No apparent distress HEENT: Atraumatic, PERRLA, EOMI, Normocephalic Oral: Moist Mucosa Neck: Supple, No JVD Lungs: Diminished, Normal air movement, No rhonchi, wheeze, No rales Cardiovascular: Regular rate, Regular Rhythm, Normal S1, Normal S2, No murmurs Abdomen: Soft, minimally tender, Distended, No Hepato-splenomegaly Extremities: No edema, Capillary Refill Less than 3 Seconds Skin: No rashes, No breakdown Musculoskeletal: No Tenderness to Palpation of Joints or Extremities Neurological: Cranial nerves II-XII grossly intact, Motor Exam 5/5 strength throughout, Sensory exam intact to light touch and pain Psych/Mental Status: Flat affect, Appropriate Assessment & Plan Assessment/Plan (1) GI bleed: PLAN: Plan 1. Anemia secondary to acute GI bleeding from gastritis and angiodysplasias of the duodenum ? We will transfuse as necessary ? Continue with PPI and and pentoxifylline ? Appreciate gastroenterology's assistance ?MRCP was unremarkable other than some cholelithiasis, ERCP demonstrated a stricture, his bile ducts were swept and he had stent placed. CA 19-9 is elevated to 163 2. Alcoholic cirrhosis with alcoholic hepatitis/jaundice ? We will continue with CIWA protocol and Ativan is available for withdrawal symptom ? EEG is negative for seizures and he feels very well today 3. C. difficile colitis ? White count up to 20.5, C. difficile test came back positive ? CT scan with thickened rectum and distal colon ? Blood cultures are pending 4. HTN ?Blood pressures are stable ? Hemoglobin is stabilized so can resume his Aldactone and his Lasix DVT: SCDs Charges/Coding Visit Charges Inpatient E&M: 95293 Subs Hosp L2
[2022-03-23] MEDS: 0.9% Saline Lock 10 ML Syringe IV (16:32)
[2022-03-23] MEDS: traZODone 100 MG Tablet PO (21:55)
[2022-03-24 03:19] VITALS: BP 123/66; PULSE 96; RESP 18; TEMP 37.3; O2SAT 93
[2022-03-24 03:26] VITALS: PULSE 107
[2022-03-24] MEDS: Vancomycin 125 MG/5 ML Susp PO.SYRINGE PO ×2 (05:58→13:15)
[2022-03-24 06:53] LABS: Absolute Lymphocyte Count 1.36 X10^3/uL (0.83-4.51); Absolute Neutrophil Count 11.8 X10^3/uL (2.0-7.7); Basophil# 0.03 X10^3/uL; Basophil% 0.2 % (0-1); Eosinophil# 0.16 X10^3/uL; Hematocrit 28.9 % (40-54); Hemoglobin 9.2 g/dL (13.0-16.5); Lymphocyte # 1.36 X10^3/ul (0.83-4.51); Lymphocyte % 8.4 % (19-41); Mean Corp Hgb Conc 31.8 g/dL (32-36); Mean Corpuscular Hgb 31.2 pg (27.0-32.0); Mean Platelet Vol. 10.4 fl (6.2-12.0); Monocyte# 2.58 X10^3/uL; NRBC Flagged by Analyzer 0.4 % (0-5); Neutrophil # 11.76 X10^3/uL (2.7-7.7); Neutrophil % 72.7 % (47-70); POSITIVE DIFFERENTIAL YES; POSITIVE MORPHOLOGY YES; Platelet Count 171 K/mm3 (150-450); RBC Distribution Width CV 19.9 % (11.6-14.6); RBC Distribution Width SD 66.7 fl (35.1-43.9); Red Blood Count 2.95 M/mm3 (4.6-6.2); White Blood Count 16.2 K/mm3 (4.4-11.0)
[2022-03-24 06:55] LABS: Differential Indicated SCAN CRITERIA MET
[2022-03-24 07:13] LABS: Differential Comment SCANNED
[2022-03-24 07:14] LABS: Anisocytosis 2+; Macrocytosis 1+; Microcytosis 1+; Polychromasia 1+; Target Cells RARE
[2022-03-24 07:16] LABS: ALB/GLOB Ratio 0.5 RATIO (0.9-2.4); AST(SGOT) 55 U/L (15-37); Alanine Aminotransfer ALT/SGPT 28 U/L (16-61); Albumin, Serum 1.8 g/dL (3.2-5.0); Alkaline Phosphatase 110 U/L (45-117); Anion Gap 5 (5-15); BUN 14 mg/dL (7-18); BUN/Creat Ratio 19.5 RATIO (10-20); Calcium,Total 7.6 mg/dL (8.5-10.1); Chloride 102 mmol/L (98-107); Creatinine, Serum 0.72 mg/dL (0.70-1.30); EST Glomerular Filtration Rate 119 mL/min (>60); Est Glom Filt Rate - Afr Amer 144 mL/min (>60); Estimated Creatinine Clearance 106.88 ml/min; Globulin 3.5 g/dL (2.2-4.2); Glucose 97 mg/dL (74-106); Potassium 3.4 mmol/L (3.5-5.1); Protein, Total 5.3 g/dL (6.4-8.2); Sodium Level 134 mmol/L (136-145)
[2022-03-24 07:23] VITALS: PULSE 99
[2022-03-24 07:51] VITALS: BP 128/70; PULSE 91; RESP 18; TEMP 36.9; O2SAT 95
[2022-03-24] MEDS: Pentoxifylline 400 MG Tablet PO ×2 (08:01→10:30)
[2022-03-24] MEDS: Thiamine Hydrochloride 100 MG Tablet PO ×2 (08:01)
[2022-03-24] MEDS: Pantoprazole Sodium 40 MG Tablet PO (08:01)
[2022-03-24] MEDS: Furosemide 40 MG Tablet PO (08:01)
[2022-03-24] MEDS: Spironolactone 25 MG Tablet PO (08:01)
[2022-03-24] MEDS: Ferrous Sulfate 325 MG Tablet PO (08:01)
[2022-03-24] MEDS: Colestipol 1 GM TABLET PO (08:01)
[2022-03-24] MEDS: Folic Acid 1 MG Tablet PO (08:01)
[2022-03-24] MEDS: Potassium Chloride 10mEq/100mL 10 MEQ/100 ML IV.SOLN. 100 MEQ IV BOLUS ×4 (08:47→12:27)
--- NOTE | 2022-03-24 09:32 | DCINST_ITS ---
Discharge Instructions Diet Discharge Diet: Low fat / Low cholesterol Activity Discharge Activity: Return to Normal Activity Dressing / Incision Call your doctor if you observe: Fever of 101 or Higher, Shortness of breath, Dizziness, Fainting spells, Swelling in the ankles, Chest pain and Increased palpitations (irregular heartbeat) Follow Up Care Test Results: Test results from this visit will be discussed in further detail at your follow- up appointment, if applicable. Discharge Plan Admission Admit Date/Time: 03/15/22 16:55 Attending Provider: Rik Diaz Primary Care Provider: Moe Schuler Consulting Providers: Nishi Nassar ; Deshawn Pavon ; Riley Álvarez Discharge Orders/Prescriptions Prescriptions: New thiamine HCl (vitamin B1) [Vitamin B-1] 100 mg Tablet 100 mg PO DAILYCM Qty: 30 0RF pentoxifylline 400 mg Tablet Extended Release 400 mg PO TIDCM Qty: 90 0RF pantoprazole 40 mg Tablet,Delayed Release (Dr/Ec) 40 mg PO BID Qty: 60 0RF folic acid 1 mg Tablet 1 mg PO DAILYCM Qty: 30 0RF colestipol 1 gram Tablet 1 g PO DAILY Qty: 30 0RF vancomycin [Vancocin] 125 mg capsule 125 mg PO Q6H 12 Days Qty: 48 0RF Continued furosemide 40 mg tablet 40 mg PO DAILY Label Comments: Take 1 tablet by mouth once daily. ferrous sulfate [FeroSul] 325 mg (65 mg iron) tablet 325 mg PO DAILY Label Comments: Take 1 tablet by mouth daily with breakfast. spironolactone 50 mg tablet 50 mg PO BID Label Comments: Take 1 tablet by mouth twice daily. Referrals / Follow Up: Kevin Burnette DO [Med Staff - Active Staff] - Within 1 Month Moe Schuler MD [Primary Care Provider] - Within 1 Week Disposition Disposition (needs filled in before D/C Order can be placed): Home, Self Care
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
[2022-03-24] MEDS: Menthol/Lanolin/Calamine/Znox 113 GM Tube 1 APPLIC TOPICAL (09:52)
[2022-03-24 11:07] VITALS: PULSE 97
[2022-03-25 15:35] LABS: Pathologist Review Reviewed
[2022-03-25 15:39] LABS: Pathologist Review Reviewed
[2022-03-26 12:38] LABS: Pathologist Review Reviewed
== END 2022-03-24 14:00 | disposition home or self-care (01) | DRG 253 ==
LOC: ED 16:23 → ICU 17:26 → PCU 03-19 17:01
PROVIDERS: Anesthesiology; Internal Medicine; Internal Medicine Critical Care Medicine; Internal Medicine Gastroenterology; Admitting Provider Family Medicine; Emergency Provider Student in an Organized Health Care Education/Training Program; PCP Internal Medicine; Visit Provider Family Medicine
PROC: 0DJ08ZZ Inspection of Upper Intestinal Tract, Via Natural or Artificial Opening Endoscopic (ICD-10-PCS; CPT 43235; principal; 2022-03-16 08:00)
PROC: 0FC98ZZ Extirpation of Matter from Common Bile Duct, Via Natural or Artificial Opening Endoscopic (ICD-10-PCS; CPT 43260; principal; 2022-03-19 15:55)
DX: K31.811 Angiodysplasia of stomach and duodenum with bleeding (principal); J94.8 Other specified pleural conditions; A04.72 Enterocolitis due to Clostridium difficile, not specified as recurrent; K20.81 Other esophagitis with bleeding; K70.31 Alcoholic cirrhosis of liver with ascites; K76.6 Portal hypertension; D62 Acute posthemorrhagic anemia; J44.9 Chronic obstructive pulmonary disease, unspecified; F10.20 Alcohol dependence, uncomplicated; D58.0 Hereditary spherocytosis; K70.11 Alcoholic hepatitis with ascites; K44.9 Diaphragmatic hernia without obstruction or gangrene; F17.210 Nicotine dependence, cigarettes, uncomplicated; E78.5 Hyperlipidemia, unspecified; E87.6 Hypokalemia; K80.20 Calculus of gallbladder without cholecystitis without obstruction; K80.71 Calculus of gallbladder and bile duct without cholecystitis with obstruction; K86.89 Other specified diseases of pancreas; Z71.6 Tobacco abuse counseling; K29.71 Gastritis, unspecified, with bleeding; Y90.1 Blood alcohol level of 20-39 mg/100 ml
CPT/HCPCS: 36415; 36600; 70450; 71045; 74174; 74177; 74181; 74330; 76000; 80048; 80053; 80076; 82040; 82077; 82140; 82247; 82248; 82803; 82962; 83690; 83735; 84075; 84100; 84132; 84156; 84450; 84460; 84484; 85014; 85018; 85025; 85610; 85730; 86301; 86850; 86900; 86901; 86920; 87040; 87493; 87633; 88108; 88305; 88313; 93005; 94640; 95819; 97110; 97162; 97166; 97530; 97535; 97803; 99285; J7030; J7040; J7050; J7120; P9016; P9017; Q9967; A4216; C1726; J1940; J2405; J3490